=== PATIENT | male | born 1950 ===

== ENCOUNTER → 2017-07-14 | Outpatient (CLI) | payer OTHER ==
[~2017-07-14] MED LIST: AMLO2.5T PO; CLC100X PO; CRBSR/200 PO; GABA-113 PO; HYDR-5688 PO; IBUP-1050 PO; LISI-725 PO; PRED10TA PO
--- NOTE | 2017-07-14 14:39 | DIAGNOSTIC IMAGING REPORT ---
L TIBIA/FIBULA 2 VIEWS CLINICAL HISTORY: 66 years-old Male presenting with LEFT LOWER LEG PAIN STATUS post fall. TECHNIQUE: Frontal and lateral views of the left lower leg were obtained. COMPARISON: None. FINDINGS: Knee joint and ankle mortise congruent. No acute fracture or malalignment. Enthesophyte noted at the superior pole of the patella. Atherosclerosis. IMPRESSION: No acute osseous injury of the left lower leg. Electronically signed by: Carlos Agudelo M.D. 07/14/2017 2:37 PM Dictated Date/Time: 07/14/2017 2:36 PM
== END | disposition home or self-care (01) ==
LOC: C.RDSM 14:19
PROVIDERS: ATTEND Physician Assistant
DX: M25.572 Pain in left ankle and joints of left foot (principal); M79.662 Pain in left lower leg

== ENCOUNTER → 2017-07-28 | Outpatient (CLI) | payer OTHER, BC ==
--- NOTE | 2017-07-28 15:23 | DIAGNOSTIC IMAGING REPORT ---
MRI LUMBAR SPINE W/O CONTRAST CLINICAL HISTORY: Back pain with left leg radiculopathy. TECHNIQUE: Sagittal and axial T1, T2 and STIR images were obtained. COMPARISON STUDY: Conventional radiographic study the lumbar spine dated 07/28/2017 OBSERVATIONS: The vertebral bodies and posterior elements appear intact. There is no abnormal bony signal present to suggest a marrow replacement process. There is a suspected transitional vertebra with partial sacralization of the L5 vertebral body. The numbering system was annotated on the PACS images. On the sagittal images, there is evidence for a disc protrusion at the T11-12 level. No axial images were obtained through this finding L1-2: There is a circumferential disc bulge with mild spinal stenosis. There is no significant foraminal narrowing. L2-3: There is a circumferential disc bulge with mild spinal stenosis. There is no significant foraminal narrowing. L3-4: There is a circumferential disc bulge with mild spinal stenosis. There is no significant foraminal narrowing L4-5: There is a circumferential disc bulge. There is facet joint arthropathy. There is moderate spinal stenosis. There is minor left-sided foraminal narrowing. L5-S1: No disc protrusions or extrusions. No evidence of spinal canal or neural foraminal compromise. The conus medullaris and cauda equina appear normal. IMPRESSION: 1. Multilevel spondylitic changes. 2. T11-T12 disc protrusion 3. Mild spinal stenosis the L1-2, L2-3, and L3-4 levels. Moderate spinal stenosis at the L4-5 level. Electronically signed by: Anirudh Cleary M.D. 07/28/2017 3:21 PM Dictated Date/Time: 07/28/2017 3:16 PM
== END | disposition home or self-care (01) ==
LOC: C.MRIBC 14:40
PROVIDERS: ATTEND Internal Medicine
DX: M79.605 Pain in left leg (principal); M51.24 Other intervertebral disc displacement, thoracic region; M99.73 Connective tissue and disc stenosis of intervertebral foramina of lumbar region

== ENCOUNTER → 2017-07-28 | Outpatient (CLI) | payer OTHER, BC ==
--- NOTE | 2017-07-28 08:56 | DIAGNOSTIC IMAGING REPORT ---
LUMBAR SPINE MIN 4 VIEWS HISTORY: Pain LOW BACK AND LEFT LEG PAIN COMPARISON: None. FINDINGS: Mild lumbar scoliosis. Moderate to rather significant degenerative disc changes throughout. Moderate sclerosis vertebral endplates. Posterior elements are intact. No evidence spondylolysis. Moderate degenerative sclerosis of the sacroiliac joints. No subluxation. IMPRESSION: Mild lumbar scoliosis. Moderate degenerative disc changes throughout. No acute process. The above report was generated using voice recognition software. It may contain grammatical, syntax or spelling errors. Electronically signed by: Davide Zacarias M.D. 07/28/2017 8:55 AM Dictated Date/Time: 07/28/2017 8:54 AM
--- NOTE | 2017-07-28 08:57 | DIAGNOSTIC IMAGING REPORT ---
L ANKLE MIN 3 VIEWS CLINICAL HISTORY: Left ankle pain COMPARISON: None. DISCUSSION: No fractures or dislocations are visualized. There are no erosive or destructive changes. There are vascular calcifications present. There is a small Achilles insertional spur. There are small spur arising from the dorsal aspect of the talus. There is a spur versus overlying corticated ossicle projected of the dorsal surface of the navicular. IMPRESSION: 1. No fractures identified 2. No erosive or destructive changes are visualized. Electronically signed by: Anirudh Cleary M.D. 07/28/2017 8:55 AM Dictated Date/Time: 07/28/2017 8:54 AM
== END | disposition home or self-care (01) ==
LOC: C.RDSM 13:24
PROVIDERS: ATTEND Internal Medicine
DX: M79.605 Pain in left leg (principal); M54.5 Low back pain

== ENCOUNTER 2017-09-19 12:00 | Emergency (ER) | payer OTHER, BC ==
[~2017-09-19] VITALS: Ht 172.7 cm; Wt 75.0 kg
[~2017-09-19 12:00] MED LIST changes: +B-COTAB18 PO; -CLC100X PO; -CRBSR/200 PO; -GABA-113 PO; -HYDR-5688 PO; -IBUP-1050 PO; -LISI-725 PO; +LISI20TA3 PO; +MELOXICAM PO; +MULT-506 PO; -PRED10TA PO
[2017-09-19 12:03] VITALS: Ht 172.7 cm; Wt 75.0 kg
[2017-09-19] MEDS ORDERED: ONDANSETRON INJ 2 MG/ML 2 ML VIAL IV STA (12:41)
[2017-09-19] MEDS ORDERED: HYDROmorphone INJ 1 MG/ML SYR IV STA ×2 (12:41→17:21)
[2017-09-19] MEDS ORDERED: KETOROLAC TROMETHAMINE 30 MG/ML VIAL IV STA (12:41)
--- NOTE | 2017-09-19 12:44 | EMERGENCY ROOM VISIT NOTE ---
History Report prepared by [employer]: Naye Burciaga Under the Supervision of: Dr. Shaka Urrutia M.D. 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 The patient states that he slipped on a knife in a hotel kitchen June 2017. He states that he skid across the kitchen floor and banged into cabinetry, though denies falling to the ground. He denies any head injuries related to this incident. He notes that he did injure his back. He states that he has increased weakness, twitching, and vibrations in his hands and feet. He states that the pain in his back has radiated to his neck and to the back of his head. He currently rates his pain a 9/10 in severity. He states that he saw a doctor who prescribed him Gabapentin three times a day and 1000 mg Tylenol every two hours. 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 He states that the twitching in his extremities began three days ago. He states the vibrating sensation in his feet began 10 minutes ago. He also reports nausea and vomiting for two days. He states that he cannot hold items in his hands for too long, because he drops them without warning. He states a stabbing sensation in his left hip. He regularly takes Lisinopril. He notes that he is in physical therapy twice a week. He has not received the flu shot this season. He denies any fevers or abdominal pain. 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 He notes a stabbing pain to left hip. Review of Systems See HPI for pertinent positives & negatives. A total of 10 systems reviewed and were otherwise negative. Past Medical & Surgical Medical Problems: (1) Anemia (2) Internal hemorrhoid, bleeding (3) Transfusion history Surgical Problems: (1) H/O hemorrhoidectomy Family History No pertinent family history Social History Smoking Status: Never Smoker Smokeless Tobacco Use: No Alcohol Use: none Drug Use: none Marital Status: Housing Status: lives with significant other Occupation Status: employed Current/Historical Medications Scheduled Acetaminophen (Tylenol), 1,000 MG PO Q2H Amlodipine (Norvasc), 2.5 MG PO BID B-Complex Vitamins (Vitamin B Complex), 1 TAB PO DAILY Docusate Sodium (Docusate Sodium), 100 CAP PO HS Doxycycline Monohydrate (Monodox), 100 MG PO BID Gabapentin (Neurontin), 300 MG PO TID Lisinopril (Prinivil), 20 MG PO BID Multivitamin (Multivitamin), 1 TAB PO DAILY Ondasetron Odt (Zofran Odt), 4 MG SL Q6H Psyllium (Metamucil Fiber), 1 PKT PEG DAILY Scheduled PRN Baclofen (Lioresal), 10 MG PO TID PRN for Pain Oxycodone Immediate Rel Tab (Roxicodone Ir), 1-2 TAB PO Q4H PRN for Severe Pain Allergies Coded Allergies: No Known Allergies (Verified , 09/19/17) Physical Exam Vital Signs Date Time Temp Pulse Resp B/P (MAP) Pulse Ox O2 Delivery O2 Flow Rate FiO2 09/19/17 19:18 37.2 70 18 125/87 95 Room Air 09/19/17 17:38 64 09/19/17 17:16 77 18 118/65 95 Room Air 09/19/17 14:46 63 16 113/73 94 Room Air 09/19/17 13:12 63 20 129/72 96 Room Air 09/19/17 12:57 96 Room Air 09/19/17 12:57 98 Room Air 09/19/17 12:53 62 09/19/17 12:03 36.4 63 18 139/81 96 Room Air Physical Exam GENERAL: Patient is a healthy-appearing well-nourished male. HEAD: Normocephalic atraumatic EYES: Ocular movements intact pupils equal and react to light OROPHARYNX mucous membranes are moist no exudates present no erythema or edema present NECK: Supple no nuchal rigidity CHEST: Good equal expansion LUNGS: Clear and equal to auscultation CARDIAC: Normal S1 and S2 ABDOMEN: Soft nontender no guarding BACK: No CVA tenderness EXTREMITIES: No pain upon palpation normal muscle strength in all groups no clubbing cyanosis or edema NEURO: Patient is following commands and answering questions appropriately. Alert and oriented x3 Cranial Nerves 2-12 grossly intact Medical Decision & Procedures ER Provider Diagnostic Interpretation: Radiology results as stated below per my review and radiologist interpretation: HEAD CT NONCONTRAST CT DOSE: 767.83 mGy.cm HISTORY: Pt c/o b/l arm weakness TECHNIQUE: Multiaxial CT images of the head were performed without the use of intravenous contrast. Automated exposure control was utilized for this study. A dose lowering technique was utilized adhering to the principles of ALARA. Comparison: Brain MRI 11/30/2013. Findings: Small retention cysts within the left maxillary sinus. The mastoid air cells are clear. The calvarium and skull base are intact. The ventricles and sulci are within normal limits. There is no mass, hematoma, midline shift, or acute infarct. Impression: No acute intracranial abnormality. Electronically signed by: Easton Enrique M.D. 09/19/2017 1:38 PM Dictated Date/Time: 09/19/2017 1:34 PM CHEST ONE VIEW PORTABLE HISTORY: Short of breath. COMPARISON: None. FINDINGS: No pneumothorax. No pleural effusions. The heart is mildly enlarged. The lungs are clear. Mildly tortuous thoracic aorta. No acute rib fractures. IMPRESSION: Mild cardiomegaly. No evidence for pulmonary edema. Electronically signed by: Easton Enrique M.D. 09/19/2017 2:13 PM Dictated Date/Time: 09/19/2017 2:12 PM Brain MRI WITH AND WITHOUT CONTRAST HISTORY: Pt c/o gen weakness TECHNIQUE: Multiplanar multisequence MRI of the brain was performed both before and after the intravenous administration of contrast. COMPARISON STUDY: Brain MRI 12/13/2013. FINDINGS: There are no areas of restricted diffusion to suggest acute infarction. The midline structures are intact. There are 2 small retention cysts within the left maxillary sinus. No fluid levels within the paranasal sinuses. The mastoid air cells are clear. The ventricles and sulci are within normal limits for age. There is no mass, hematoma, midline shift. The major vascular flow-voids at the skull base are well maintained. Postcontrast sequences show no areas of abnormal enhancement. IMPRESSION: No acute intracranial abnormality. Electronically signed by: Easton Enrique M.D. 09/19/2017 5:41 PM CERVICAL SPINE MRI WITH AND WITHOUT CONTRAST HISTORY: Pt c/o b/l arm weakness TECHNIQUE: Multiplanar multisequence MRI of the cervical spine was performed both before and after the use of intravenous contrast. COMPARISON STUDY: None. FINDINGS: Motion artifact. No definite fracture or subluxation. Prevertebral soft tissues and the C1-C2 interval are intact. The visualized posterior fossa is unremarkable. The cervical spinal cord demonstrates a normal signal intensity. Mild facet osteoarthritis throughout the majority of the cervical spine. There is mild disc space narrowing at C6-C7. No abnormal enhancement identified. C2-C3: Small focal central disc protrusion without significant central canal or left-sided neural foraminal narrowing. Moderate right-sided neural foraminal narrowing due to the facet and uncovertebral hypertrophy. C3-C4: Small focal central disc protrusion which abuts and slightly deforms the anterior cord. Mild to moderate bilateral neural foraminal narrowing. C4-C5: Small central/left paracentral focal disc protrusion which abuts and slightly deforms anterior cord. Mild bilateral neural foraminal narrowing. C5-C6: No significant central canal or right-sided neural foraminal narrowing. Moderate left-sided neural foraminal narrowing due to the uncovertebral and facet hypertrophy. C6-C7: Small broad-based posterior disc osteophyte complex without significant central canal narrowing. There is severe bilateral neural foraminal narrowing. C7-T1: Broad-based posterior disc bulge resulting in partial effacement of the anterior thecal sac without cord deformity. Mild right and severe left neural foraminal narrowing. IMPRESSION: 1. Motion artifact. No definite acute abnormality within the cervical spine. 2. The cervical spinal cord demonstrates a normal signal intensity. 3. Degenerative changes as described above. Electronically signed by: Easton Enrique M.D. 09/19/2017 5:48 PM Dictated Date/Time: 09/19/2017 5:41 PM Laboratory Results 09/19/17 13:01 Red Blood Count 5.23, Mean Corpuscular Volume 65.0, Mean Corpuscular Hemoglobin 20.8, Mean Corpuscular Hemoglobin Concent 32.1, Mean Platelet Volume 10.0, Neutrophils (%) (Auto) 46.7, Lymphocytes (%) (Auto) 45.6, Monocytes (%) (Auto) 5.1, Eosinophils (%) (Auto) 1.8, Basophils (%) (Auto) 0.4, Neutrophils # (Auto) 4.92, Lymphocytes # (Auto) 4.80, Monocytes # (Auto) 0.54, Eosinophils # (Auto) 0.19, Basophils # (Auto) 0.04 09/19/17 13:01 Test 09/19/17 13:00 09/19/17 13:01 09/19/17 13:06 09/19/17 14:32 Influenza Type A Antigen Neg for Influ A (NEG) Influenza Type B Antigen Neg for Influ B (NEG) White Blood Count 10.53 K/uL (4.8-10.8) Red Blood Count 5.23 M/uL (4.7-6.1) Hemoglobin 10.9 g/dL (14.0-18.0) Hematocrit 34.0 % (42-52) Mean Corpuscular Volume 65.0 fL (80-100) Mean Corpuscular Hemoglobin 20.8 pg (25-34) Mean Corpuscular Hemoglobin Concent 32.1 g/dl (32-36) Platelet Count 204 K/uL (130-400) Mean Platelet Volume 10.0 fL (7.4-10.4) Neutrophils (%) (Auto) 46.7 % Lymphocytes (%) (Auto) 45.6 % Monocytes (%) (Auto) 5.1 % Eosinophils (%) (Auto) 1.8 % Basophils (%) (Auto) 0.4 % Neutrophils # (Auto) 4.92 K/uL (1.4-6.5) Lymphocytes # (Auto) 4.80 K/uL (1.2-3.4) Monocytes # (Auto) 0.54 K/uL (0.11-0.59) Eosinophils # (Auto) 0.19 K/uL (0-0.5) Basophils # (Auto) 0.04 K/uL (0-0.2) RDW Standard Deviation 39.8 fL (36.4-46.3) RDW Coefficient of Variation 17.1 % (11.5-14.5) Immature Granulocyte % (Auto) 0.4 % Immature Granulocyte # (Auto) 0.04 K/uL (0.00-0.02) Microcytosis PRESENT Tear Drop Cells 1+ Prothrombin Time 11.0 SECONDS (9.0-12.0) Prothromb Time International Ratio 1.0 (0.9-1.1) Activated Partial Thromboplast Time 26.3 SECONDS (21.0-31.0) Partial Thromboplastin Ratio 1.0 Anion Gap 7.0 mmol/L (3-11) Est Creatinine Clear Calc Drug Dose 66.9 ml/min Estimated GFR () 85.3 Estimated GFR (Non- 73.6 BUN/Creatinine Ratio 16.6 (10-20) Calcium Level 9.6 mg/dl (8.5-10.1) Total Bilirubin 0.9 mg/dl (0.2-1) Direct Bilirubin 0.2 mg/dl (0-0.2) Aspartate Amino Transf (AST/SGOT) 27 U/L (15-37) Alanine Aminotransferase (ALT/SGPT) 57 U/L (12-78) Alkaline Phosphatase 50 U/L (45-117) Total Creatine Kinase 391 U/L (39-308) Creatine Kinase MB 8.2 ng/ml (0.5-3.6) Troponin I < 0.015 ng/ml (0-0.045) Total Protein 7.3 gm/dl (6.4-8.2) Albumin 4.2 gm/dl (3.4-5.0) Lipase 156 U/L (73-393) Salicylates Level < 1.7 mg/dl (2.8-20) Acetaminophen Level 21 ug/ml (10-30) Lyme Disease IgG Antibody NEG (NEG) Monoscreen NEG (NEG) Bedside Glucose 91 mg/dl (70-99) Creatine Kinase MB Ratio (0-3.0) Test 09/19/17 14:45 Urine Color DK YELLOW Urine Appearance CLOUDY (CLEAR) Urine pH 5.0 (4.5-7.5) Urine Specific [place] 1.028 (1.000-1.030) Urine Protein NEG (NEG) Urine Glucose (UA) NEG (NEG) Urine Ketones TRACE (NEG) Urine Occult Blood NEG (NEG) Urine Nitrite NEG (NEG) Urine Bilirubin NEG (NEG) Urine Urobilinogen NEG (NEG) Urine Leukocyte Esterase NEG (NEG) Urine WBC (Auto) 1-5 /hpf (0-5) Urine RBC (Auto) 0-4 /hpf (0-4) Urine Hyaline Casts (Auto) 5-10 /lpf (0-5) Urine Epithelial Cells (Auto) 0-5 /lpf (0-5) Urine Bacteria (Auto) NEG (NEG) Urine Opiates Screen POS (NEG) Urine Methadone, Qualitative NEG (NEG) Urine Barbiturates NEG (NEG) Urine Phencyclidine (PCP) Level NEG (NEG) Ur Amphetamine/Methamphetamine NEG (NEG) MDMA (Ecstasy) Screen NEG (NEG) Urine Benzodiazepines Screen NEG (NEG) Urine Cocaine Metabolite NEG (NEG) Urine Marijuana (THC) NEG (NEG) Labs reviewed by ED physician. Medications Administered Medications (Trade) Dose Ordered Sig/Abril Route Start Time Stop Time Status Last Admin Dose Admin Ketorolac Tromethamine (Toradol Inj) 30 mg NOW STAT IV 09/19/17 12:41 09/19/17 12:44 DC 09/19/17 13:07 30 MG Hydromorphone HCl (Dilaudid Inj) 1 mg NOW STAT IV 09/19/17 12:41 09/19/17 12:44 DC 09/19/17 13:08 1 MG Ondansetron HCl (Zofran Inj) 4 mg NOW STAT IV 09/19/17 12:41 09/19/17 12:45 DC 09/19/17 13:07 4 MG Potassium Chloride (Najma Ciel Elix) 30 meq NOW STAT PO 09/19/17 14:06 09/19/17 14:07 DC 09/19/17 17:08 30 MEQ Sodium Chloride 1,000 ml @ 999 mls/hr Q1H1M STAT IV 09/19/17 14:32 09/19/17 15:32 DC 09/19/17 14:50 999 MLS/HR Hydromorphone HCl (Dilaudid Inj) 1 mg NOW STAT IV 09/19/17 17:21 09/19/17 17:22 DC 09/19/17 17:27 1 MG Ceftriaxone Sodium (Rocephin Inj) 2 gm NOW STAT IV 09/19/17 18:03 09/19/17 18:05 DC 09/19/17 18:26 2 GM ECG Indication: weakness Rate (beats per minute): 58 Rhythm: sinus bradycardia Findings: no acute ischemic change, no ectopy ED Course 1233: Past medical records reviewed. The patient was evaluated in room C9. A complete history and physical examination was performed. 1241: Ordered Zofran 4 mg IV, Dilaudid 1 mg IV, Toradol 30 mg, and Potassium Chloride 30 meq PO 1422: I reassessed the patient at this time. He is resting comfortably. 1432: Ordered Sodium Chloride 1,000 ml @ 999 mls/hr 1721: Ordered Dilaudid 1 mg IV 1800: I reassessed the patient at this time. He is resting comfortably. I discussed the results and treatment plan with the patient. I answered all pertaining questions that he had. He expressed understanding and verbalized agreement. The patient will be discharged home. 1803: Ordered Rocephin 2 gm IV Medical Decision Prior records/ancillary studies reviewed. Triage Nursing notes reviewed. Additional history obtained from . The patient's history was concerning for altered mental status and probable overdose. Differential diagnosis: Etiologies such as toxicologic, infection, hypoglycemia, electrolyte abnormalities, cardiac sources, intracerebral event, neurologic, as well as others were entertained. This is a 67-year-old male that presents emergency department with numerous complaints. I had difficulty and pinning down exactly what the patient was here for but he appears to be complaining of generalized weakness that started approximately 3 days ago. I recommended CT the head however the patient refused CT of the neck. He did consent though for an MRI of the head and neck. The patient does have a number of slipped discs and he is following up with pain management clinic. In the emergency department patient is given Toradol as well as Dilaudid 2. Repeat examination revealed improvement patient's symptoms. The patient does not have an elevation in his white blood count cell count, his renal profile is normal and his liver profile is normal. His an equivocal Lyme's test and after talking with the patient we will try treating him for this. He was given 2 g of Rocephin in the emergency department. I will place the patient on doxycycline pending Lyme culture results. I recommended that the patient follow-up with pain management. Patient and are in agreement with the treatment plan. Medication Reconcilliation Current Medication List: was personally reviewed by me Blood Pressure Screening Patient's blood pressure: Normal blood pressure Impression Primary Impression: Generalized weakness Scribe Attestation The scribe's documentation has been prepared under my direction and personally reviewed by me in its entirety. I confirm that the note above accurately reflects all work, treatment, procedures, and medical decision making performed by me. Departure Information Dispostion Home / Self-Care Prescriptions Oxycodone Immediate Rel Tab (ROXICODONE IR) 5 Mg Tab 1-2 TAB PO Q4H Y for Severe Pain, #14 TAB Prov: Shaka Urrutia MD 09/19/17 Ondasetron Odt (ZOFRAN ODT) 4 Mg Tab 4 MG SL Q6H for Nausea, #6 TAB Prov: Shaka Urrutia MD 09/19/17 Doxycycline Monohydrate (Monodox) 100 Mg Cap 100 MG PO BID for 10 Days, #20 CAP Prov: Shaka Urruita MD 09/19/17 Referrals Olesya Elaine M.D. (PCP) Forms HOME CARE DOCUMENTATION FORM, IMPORTANT VISIT INFORMATION, WORK / SCHOOL INSTRUCTIONS Patient Instructions My [facility] Additional Instructions You received narcotic or benzodiazepene medication while in the emergency room today. This is an addictive medication that may cause drowziness as well as constipation. Do not drive, operate heavy machinery, or drink alcohol under the influence of this medication. Take 1000 mg Tylenol every 6 hours Take Oxy IR for breakthrough pain Culture results will be back in approx 48 hours You have been examined and treated today on an emergency basis only. This is not a substitute for, or an effort to provide, complete comprehensive medical care. It is impossible to recognize and treat all injuries or illnesses in a single emergency department visit. It is therefore important that you follow up closely with Dr Sousa. Call as soon as possible for an appointment. Thank you for your time and consideration. I look forward to speaking with you again soon. Please don't hesitate to call us if you have any questions.
[2017-09-19 12:57] VITALS: O2SAT 96
[2017-09-19 13:29] LABS: BASO % 0.4 %; BASO ABS # 0.04 K/uL (0-0.2); EOS % 1.8 %; EOS ABS # 0.19 K/uL (0-0.5); HEMOGLOBIN 10.9 g/dL (14.0-18.0); IG# 0.04 K/uL (0.00-0.02); LYMPH % 45.6 %; MEAN CORPUSCULAR HEMOGLOBIN 20.8 pg (25-34); MEAN CORPUSCULAR HGB CONC 32.1 g/dl (32-36); MONO % 5.1 %; MONO ABS # 0.54 K/uL (0.11-0.59); NEUT % 46.7 %; NEUT ABS # 4.92 K/uL (1.4-6.5); PLATELET COUNT 204 K/uL (130-400); RED CELL DISTRIBUTION WIDTH CV 17.1 % (11.5-14.5); RED CELL DISTRIBUTION WIDTH SD 39.8 fL (36.4-46.3); WHITE BLOOD COUNT 10.53 K/uL (4.8-10.8)
[2017-09-19 13:38] LABS: PTT PATIENT 26.3 SECONDS (21.0-31.0)
--- NOTE | 2017-09-19 13:39 | DIAGNOSTIC IMAGING REPORT ---
HEAD CT NONCONTRAST CT DOSE: 767.83 mGy.cm HISTORY: Pt c/o b/l arm weakness TECHNIQUE: Multiaxial CT images of the head were performed without the use of intravenous contrast. Automated exposure control was utilized for this study. A dose lowering technique was utilized adhering to the principles of ALARA. Comparison: Brain MRI 11/30/2013. Findings: Small retention cysts within the left maxillary sinus. The mastoid air cells are clear. The calvarium and skull base are intact. The ventricles and sulci are within normal limits. There is no mass, hematoma, midline shift, or acute infarct. Impression: No acute intracranial abnormality. Electronically signed by: Easton Enrique M.D. 09/19/2017 1:38 PM Dictated Date/Time: 09/19/2017 1:34 PM
[2017-09-19 13:46] LABS: INFLUENZA B ANTIGEN Neg for Influ B (NEG)
[2017-09-19 13:46] LABS: ALBUMIN 4.2 gm/dl (3.4-5.0); CALCIUM 9.6 mg/dl (8.5-10.1); CREATININE 1.05 mg/dl (0.60-1.40); POTASSIUM 3.7 mmol/L (3.5-5.1)
[2017-09-19 13:49] LABS: TOTAL PROTEIN 7.3 gm/dl (6.4-8.2)
[2017-09-19] MEDS ORDERED: BACL1TAB PO (13:59)
[2017-09-19] MEDS ORDERED: ACET-1256 PO (13:59)
[2017-09-19] MEDS ORDERED: GABA-113 PO (13:59)
[2017-09-19] MEDS ORDERED: PSYL58.636 PEG (13:59)
[2017-09-19] MEDS ORDERED: DOCU100C31 PO (13:59)
[2017-09-19] MEDS ORDERED: POTASSIUM CHLORIDE 20 MEQ/15 ML UDC PO STA (14:06)
--- NOTE | 2017-09-19 14:14 | DIAGNOSTIC IMAGING REPORT ---
CHEST ONE VIEW PORTABLE HISTORY: Short of breath. COMPARISON: None. FINDINGS: No pneumothorax. No pleural effusions. The heart is mildly enlarged. The lungs are clear. Mildly tortuous thoracic aorta. No acute rib fractures. IMPRESSION: Mild cardiomegaly. No evidence for pulmonary edema. Electronically signed by: Easton Enrique M.D. 09/19/2017 2:13 PM Dictated Date/Time: 09/19/2017 2:12 PM
[2017-09-19] MEDS ORDERED: SODIUM CHLORIDE 0.9% 1000ML 1,000 ML IV STA (14:32)
[2017-09-19 16:59] LABS: CKMB 8.2 ng/ml (0.5-3.6)
[2017-09-19 17:01] LABS: MONOSPOT NEG (NEG)
--- NOTE | 2017-09-19 17:42 | DIAGNOSTIC IMAGING REPORT ---
Brain MRI WITH AND WITHOUT CONTRAST HISTORY: Pt c/o gen weakness TECHNIQUE: Multiplanar multisequence MRI of the brain was performed both before and after the intravenous administration of contrast. COMPARISON STUDY: Brain MRI 12/13/2013. FINDINGS: There are no areas of restricted diffusion to suggest acute infarction. The midline structures are intact. There are 2 small retention cysts within the left maxillary sinus. No fluid levels within the paranasal sinuses. The mastoid air cells are clear. The ventricles and sulci are within normal limits for age. There is no mass, hematoma, midline shift. The major vascular flow-voids at the skull base are well maintained. Postcontrast sequences show no areas of abnormal enhancement. IMPRESSION: No acute intracranial abnormality. Electronically signed by: Easton Enrique M.D. 09/19/2017 5:41 PM Dictated Date/Time: 09/19/2017 5:33 PM
--- NOTE | 2017-09-19 17:50 | DIAGNOSTIC IMAGING REPORT ---
CERVICAL SPINE MRI WITH AND WITHOUT CONTRAST HISTORY: Pt c/o b/l arm weakness TECHNIQUE: Multiplanar multisequence MRI of the cervical spine was performed both before and after the use of intravenous contrast. COMPARISON STUDY: None. FINDINGS: Motion artifact. No definite fracture or subluxation. Prevertebral soft tissues and the C1-C2 interval are intact. The visualized posterior fossa is unremarkable. The cervical spinal cord demonstrates a normal signal intensity. Mild facet osteoarthritis throughout the majority of the cervical spine. There is mild disc space narrowing at C6-C7. No abnormal enhancement identified. C2-C3: Small focal central disc protrusion without significant central canal or left-sided neural foraminal narrowing. Moderate right-sided neural foraminal narrowing due to the facet and uncovertebral hypertrophy. C3-C4: Small focal central disc protrusion which abuts and slightly deforms the anterior cord. Mild to moderate bilateral neural foraminal narrowing. C4-C5: Small central/left paracentral focal disc protrusion which abuts and slightly deforms anterior cord. Mild bilateral neural foraminal narrowing. C5-C6: No significant central canal or right-sided neural foraminal narrowing. Moderate left-sided neural foraminal narrowing due to the uncovertebral and facet hypertrophy. C6-C7: Small broad-based posterior disc osteophyte complex without significant central canal narrowing. There is severe bilateral neural foraminal narrowing. C7-T1: Broad-based posterior disc bulge resulting in partial effacement of the anterior thecal sac without cord deformity. Mild right and severe left neural foraminal narrowing. IMPRESSION: 1. Motion artifact. No definite acute abnormality within the cervical spine. 2. The cervical spinal cord demonstrates a normal signal intensity. 3. Degenerative changes as described above. Electronically signed by: Easton Enrique M.D. 09/19/2017 5:48 PM Dictated Date/Time: 09/19/2017 5:41 PM
[2017-09-19] MEDS ORDERED: CEFTRIAXONE SOD INJ 1 GM ADDVIAL IV STA (18:03)
[2017-09-19] MEDS ORDERED: DOXY100C76 PO (18:06)
[2017-09-19] MEDS ORDERED: OXYC-57 PO (18:06)
[2017-09-19] MEDS ORDERED: ONDA4TAB10 SL (18:07)
[2017-09-19] MEDS ORDERED: OXYC1TAB3 PO (18:08)
[2017-09-19 19:18] VITALS: BP 125/87; PULSE 70; TEMP 37.2; O2SAT 95
[2017-09-21 16:33] LABS: EBV EARLY ANTIGEN AB < 9.00 U/ML
== END 2017-09-19 19:29 | disposition home or self-care (01) ==
LOC: C.EDB 12:03 → C.EDC 19:29
DX: R53.1 Weakness (principal); S39.92XD Unspecified injury of lower back, subsequent encounter; W01.198D Fall on same level from slipping, tripping and stumbling with subsequent striking against other object, subsequent encounter; R11.2 Nausea with vomiting, unspecified

== ENCOUNTER → 2017-10-06 | Day surgery (SDC) | payer OTHER, BC ==
[2017-09-17 08:54] VITALS: Ht 172.7 cm; Wt 72.3 kg
[~2017-10-06] VITALS: Ht 172.7 cm; Wt 72.3 kg
[~2017-10-06] MED LIST changes: +ACET-1256 PO; +BACL1TAB PO; +DOCU100C31 PO; +GABA-113 PO; +IOPAMIDOL INJ 61% 15 ML VIAL ONE; +LIDOCAINE HCL 1% MPF 5 ML VIAL ONE; +MBC75 PO; -MELOXICAM PO; +ONDA4TAB10 SL; +OXYC1TAB3 PO; +PSYL58.636 PEG; +SODIUM CHLORIDE 0.9% INJ 10 ML VIAL ONE
[2017-10-06 14:29] VITALS: BP 140/82; PULSE 60; O2SAT 100
--- NOTE | 2017-10-06 15:16 | OPERATIVE REPORT ---
DATE OF OPERATION: 10/06/2017 PREOPERATIVE DIAGNOSIS: Lumbar stenosis with a left L5 radiculopathy. POSTOPERATIVE DIAGNOSIS: Same. OPERATIVE PROCEDURE: Caudal epidural steroid injection under fluoroscopic guidance. INDICATIONS: The patient is a 67-year-old male who presents with a 3-1/2 month history of left leg pain that occurred after he slipped and went to catch himself at the joining motion of his back. He described a classic L5 radicular sensation down the leg that has not responded to conservative treatment, presents today for an epidural injection. The plan was to go via an intralaminar approach; however, the patient took anti-inflammatory this morning, Meloxicam and the approach will be via caudal route, given the risk of an epidural hematoma given the intralaminar approach. PHYSICAL EXAMINATION: Pleasant male seated comfortably. He has some tenderness to palpation of left sciatic notch. No focal weakness. Intact sensation. Negative seated straight leg raises. CONSENT: Verbal and written consent was obtained from the patient. Risks and benefits were reviewed. Risks include but are not limited to epidural abscess and allergic reaction. The patient wishes to proceed. DESCRIPTION OF PROCEDURE: The patient was taken back to procedures room of the [facility] where he was maintained in a prone position. Backside was cleansed with Betadine x3 and a dry sterile dressing was applied. Fluoroscope was used to identify the sacral hiatus I attest to the content of the Intraoperative Record and any orders documented therein. Any exception s are noted below.
--- NOTE | 2017-10-06 15:19 | OPERATIVE REPORT ---
DATE OF OPERATION: 10/06/2017 ADDENDUM PROCEDURE: The patient was taken back to the special procedures room, maintained in a prone position. Backside was cleansed with Betadine x3. Dry sterile dressing was applied. Fluoroscope was used to identify the sacral hiatus and overlying skin was anesthetized with 4 mL of lidocaine 1% with a 25 gauge 1.5-inch needle. A 25 gauge 3.5 inch spinal needle was then directed into the sacral canal and had resistance for being advanced very far was advanced upwards of 3/4 of an inch to an inch in the canal. He then underwent injection after negative aspiration of 40 mg of Depo-Medrol and 4 mL of preservative free sodium chloride. Injection was well tolerated. DISPOSITION: 1. The patient is taken out into the discharge recovery area where he will be discharged home once discharge criteria have been met. 2. Follow up in the [facility] office in 4 weeks' time. I attest to the content of the Intraoperative Record and any orders documented therein. Any exception s are noted below.
--- NOTE | 2017-10-06 15:20 | History & Physical Bridge - SC ---
H&P Re-Evaluation Bridge Note: I have examined the patient, reviewed the History & Physical and in the interval since the performance of the History & Physical I have noted the following changes of clinical significance: No changes noted
--- NOTE | 2017-10-06 15:22 | [facility] Post Operative Brief Note ---
Immediate Operative Summary Operative Date Oct 06, 2017. Pre-Operative Diagnosis Lumbar stenosis with left L5 radiculopathy Post-Operative Diagnosis Same Procedure(s) Performed Lumbar Epidural Steroid Injection, Caudal Approach Surgeon Dr. Moises Ragland Perfect Binder Operator Surgeon(s) None Estimated Blood Loss 0 Findings Consistent with Post-Op Diagnosis Specimens NA Anesthesia Type Local Disposition Disposition:
--- NOTE | 2017-10-06 15:22 | Discharge Instructions ---
Discharge Instructions Date of Service Oct 06, 2017. Visit Reason for Visit: Lumbar Radiculopathy Discharge Discharge Diagnosis / Problem: left leg pain Discharge Goals Goal(s): Decrease discomfort, Improve function Medications Stopped Medications Name(s): TYLENOL AND MELOXICAM LAST DOSE YESTERDAY AM Activity Recommendations Activity Limitations: resume your previous activity Anesthesia . Post Anesthesia Instructions: If you have had General Anesthesia or IV Sedation: * Do not drive today. * Resume driving when surgeon permits. * Do not make important decisions or sign legal documents today. * Call surgeon for: 1. Temperature elevations greater than 101 degrees F. 2. Uncontrollable pain. 3. Excessive bleeding. 4. Persistent nausea and vomiting. 5. Medication intolerance (nausea, vomiting or rash). * For nausea and vomiting use only clear liquids such as: tea, soda, bouillon until nausea subsides, then gradually increase diet as tolerated. * If you have any concerns or questions, call your surgeon's office. If physician is unavailable and it is an emergency, call 911 or go to the nearest emergency room. . Diet Recommendations Recommended Home Diet: resume previous diet Procedures Procedures Performed: Lumbar Epidural Steroid Injection, Caudal Approach Pending Studies Studies pending at discharge: no Medical Emergencies . Who to Call and When: Medical Emergencies: If at any time you feel your situation is an emergency, please call 911 immediately. . Non-Emergent Contact Non-Emergency issues call your: Specialist . . "Provider Documentation" section prepared by Jakub Ragland. .
== END | disposition home or self-care (01) ==
LOC: X.SURG 12:48
PROVIDERS: ATTEND Physical Medicine & Rehabilitation
DX: M48.061 Spinal stenosis, lumbar region without neurogenic claudication (principal); Z79.899 Other long term (current) drug therapy

== ENCOUNTER → 2017-11-22 | Day surgery (SDC) | payer OTHER, BC ==
[2017-11-04 10:39] VITALS: Ht 172.7 cm; Wt 72.3 kg
[~2017-11-22] VITALS: Ht 172.7 cm; Wt 72.3 kg
[~2017-11-22] MED LIST changes: -BACL1TAB PO; -GABA-113 PO; +GABA600T PO; -ONDA4TAB10 SL; -OXYC1TAB3 PO; -PSYL58.636 PEG; +PSYL58.636 PO
--- NOTE | 2017-11-22 14:26 | [facility] Post Operative Brief Note ---
Immediate Operative Summary Operative Date Nov 22, 2017. Pre-Operative Diagnosis Neural foraminal stenosis with left lower extremity radiculopathy L5 Post-Operative Diagnosis Same Procedure(s) Performed Lumbar Epidural Steroid Injection Surgeon Dr. Moises Ragland Vault Clerk Surgeon(s) None Estimated Blood Loss 0 Findings Consistent with Post-Op Diagnosis Specimens NA Drains None Anesthesia Type Local Complication(s) none Disposition Disposition:
--- NOTE | 2017-11-22 14:27 | Discharge Instructions ---
Discharge Instructions Date of Service Nov 22, 2017. Visit Reason for Visit: Lumbar Radiculopathy Discharge Discharge Diagnosis / Problem: left leg pain Discharge Goals Goal(s): Decrease discomfort, Improve function Activity Recommendations Activity Limitations: resume your previous activity Anesthesia . Post Anesthesia Instructions: If you have had General Anesthesia or IV Sedation: * Do not drive today. * Resume driving when surgeon permits. * Do not make important decisions or sign legal documents today. * Call surgeon for: 1. Temperature elevations greater than 101 degrees F. 2. Uncontrollable pain. 3. Excessive bleeding. 4. Persistent nausea and vomiting. 5. Medication intolerance (nausea, vomiting or rash). * For nausea and vomiting use only clear liquids such as: tea, soda, bouillon until nausea subsides, then gradually increase diet as tolerated. * If you have any concerns or questions, call your surgeon's office. If physician is unavailable and it is an emergency, call 911 or go to the nearest emergency room. . Diet Recommendations Recommended Home Diet: resume previous diet Procedures Procedures Performed: Lumbar Epidural Steroid Injection Pending Studies Studies pending at discharge: no Medical Emergencies . Who to Call and When: Medical Emergencies: If at any time you feel your situation is an emergency, please call 911 immediately. . Non-Emergent Contact Non-Emergency issues call your: Specialist . . "Provider Documentation" section prepared by Jakub Ragland. .
[2017-11-22 14:30] VITALS: TEMP 36.8
--- NOTE | 2017-11-22 14:44 | OPERATIVE REPORT ---
DATE OF OPERATION: 11/22/2017 PREOPERATIVE DIAGNOSES: Neural foraminal stenosis, left lower extremity, L5 radiculopathy. POSTOPERATIVE DIAGNOSES: Same. PROCEDURE: Left paramedian L5-S1 intralaminar epidural steroid injection under fluoroscopic guidance. INDICATIONS: The patient is a 67-year-old male that underwent a caudal epidural injection about a month ago. A little more than a month ago, he had 40% improvement, less intense pain but no improvement in frequency. The idea is to do a second epidural via the intralaminar approach to try to stack the effects of the medications. PHYSICAL EXAMINATION: Pleasant male seated comfortably. He has no focal weakness. Intact sensation. Negative seated straight leg raises. CONSENT: Verbal and written consent was obtained from the patient. Risks and benefits were reviewed. Risks include but are not limited to abscess, epidural abscess, epidural hematoma, allergic reaction, and dural puncture. The patient wishes to proceed. DESCRIPTION OF PROCEDURE: The patient was taken back to the special procedure room of the [facility] where he was maintained in a prone position. Backside was cleansed with Betadine x3 and a dry sterile dressing was applied. Fluoroscope was used to identify the L5-S1 intralaminar space and overlying skin on the left side was anesthetized with 4 mL of lidocaine 1% 25 gauge 1.5-inch needle. A 22 gauge 3.5-inch needle was then directed down towards the intralaminar space. It was advanced under lateral fluoroscopic guidance and loss of resistance was noted at a depth of 5 cm. Isovue-300 contrast 1 mL was injected in which demonstrated epidural uptake pattern which was confirmed with both AP and lateral views. He then underwent injection after negative aspiration of 40 mg Depo-Medrol, 4 mL of preservative free sodium chloride. Injection was well tolerated and reproduced a familiar radicular sensation was transient down the left leg. DISPOSITION: 1. The patient is taken out into the discharge recovery area where he will be discharged home once discharge criteria are met. 2. Follow up in the [facility] office in 4 weeks' time. I attest to the content of the Intraoperative Record and any orders documented therein. Any exception s are noted below.
[2017-11-22 14:56] VITALS: BP 148/83; PULSE 63; O2SAT 98
== END | disposition home or self-care (01) ==
LOC: X.SURG 13:07
PROVIDERS: ATTEND Physical Medicine & Rehabilitation
DX: M48.061 Spinal stenosis, lumbar region without neurogenic claudication (principal); M54.16 Radiculopathy, lumbar region

== ENCOUNTER 2018-10-04 23:54 | Inpatient (IN) ==
[2018-10-05] MEDS ORDERED: SODIUM CHLORIDE 0.9% 1000ML 2,000 ML IV ONE (00:21)
[2018-10-05] MEDS ORDERED: ALBUT/IPRATROP 3MG/0.5MG NEB 3 ML VIAL NEB STA (00:30)
[2018-10-05 00:53] LABS: Basophils # (auto) 0.03 K/uL (0-0.2); Basophils % (auto) 0.2 %; Eosinophils # (auto) 0.05 K/uL (0-0.5); Eosinophils % (auto) 0.3 %; Hematocrit (blood only) 34.6 % (42-52); Immature Granulocytes # (auto) 0.05 K/uL (0.00-0.02); Immature Granulocytes % (auto) 0.3 %; Lymphocytes # (auto) 1.41 K/uL (1.2-3.4); Lymphocytes % (auto) 8.5 %; Mean Corpuscular Hgb Conc 31.8 g/dL (32-36); Mean Corpuscular Volume 65.2 fL (80-100); Mean Platelet Volume 10.1 fL (7.4-10.4); Monocytes # (auto) 0.35 K/uL (0.11-0.59); Monocytes % (auto) 2.1 %; Neutrophils # (auto) 14.64 K/uL (1.4-6.5); Neutrophils % (auto) 88.6 %; Platelet Count 211 K/uL (130-400); RDW Coefficient of Variation 16.3 % (11.5-14.5); RDW Standard Deviation 37.9 fL (36.4-46.3); Red Blood Count 5.31 M/uL (4.7-6.1); White Blood Count 16.53 K/uL (4.8-10.8)
[2018-10-05] MEDS ORDERED: VANCOMYCIN HCL 1,500 MG in SODIUM CHLORIDE 0.9% 500 ML IV ONE (00:55)
[2018-10-05] MEDS ORDERED: PIPERACILL/TAZOBAC CONSULT ACTIVE PRN ×2 (00:55→03:36)
[2018-10-05] MEDS ORDERED: PIPERACILLIN/TAZOBACTAM 4.5 GM/120 ML BAG IV ONE (00:55)
[2018-10-05] MEDS ORDERED: VANCOMYCIN CONSULT ACTIVE PRN ×2 (00:55→03:36)
[2018-10-05 01:01] LABS: INR 1.1 (0.9-1.1); Prothrombin Time 11.4 Seconds (9.0-12.0)
[2018-10-05 01:11] LABS: Alanine Aminotransferase 23 U/L (12-78); Albumin Level 3.8 gm/dl (3.4-5.0); Aspartate Aminotransferase 13 U/L (15-37); BUN Creatinine Ratio 16.7 (10-20); Bilirubin Direct 0.2 mg/dl (0-0.2); Blood Urea Nitrogen 15 mg/dl (7-18); C Reactive Protein < 0.29 mg/dl (0-0.29); Calcium 9.6 mg/dl (8.5-10.1); Carbon Dioxide 24 mmol/L (21-32); Chloride 106 mmol/L (98-107); Creatinine Clr Calc Pharmacy 72.8 ml/min; Est GFR (African American) 99.4; Est GFR (Non-African American) 85.8; Glucose 150 mg/dl (70-99); Hypochromasia Present; Magnesium 1.9 mg/dl (1.8-2.4); Microcytosis Present; Potassium 3.5 mmol/L (3.5-5.1); Sodium 139 mmol/L (136-145); Tear Drop Cells 1+
[2018-10-05 01:14] LABS: Alkaline Phosphatase 64 U/L (45-117); Bilirubin,Total 0.8 mg/dl (0.2-1); Total Protein 6.9 gm/dl (6.4-8.2); Troponin I < 0.015 ng/ml (0-0.045)
[2018-10-05 01:43] LABS: Influenza A virus by PCR Neg for Influ A (Neg); Influenza B virus by PCR Neg for Influ B (Neg)
[2018-10-05] MEDS ORDERED: fentaNYL citrate 100 MCG/2 ML VIAL IV STA (01:53)
[2018-10-05] MEDS ORDERED: KETOROLAC TROMETHAMINE 15 MG/ML VIAL IV STA (01:53)
[2018-10-05] MEDS ORDERED: MELOXICAM 7.5 MG TAB PO STA (02:13)
[2018-10-05] MEDS ORDERED: GABAPENTIN 600 MG TAB PO STA (02:14)
[2018-10-05] MEDS ORDERED: AMITRIPTYLINE HCL 10 MG TAB PO STA (02:15)
[2018-10-05] MEDS ORDERED: SODIUM CHLORIDE 0.9% 1000ML 1,000 ML IV ONE (02:45)
[2018-10-05] MEDS ORDERED: XOPENEX/ATROVENT 1.25mg/0.5MG NEB COMBO NEB PRN (03:36)
[2018-10-05] MEDS ORDERED: BACLOFEN 20 MG TAB PO PRN (03:36)
[2018-10-05] MEDS ORDERED: IPRATROPIUM BROMIDE NASAL SPRAY 0.06% 15ML PRN (03:36)
[2018-10-05] MEDS ORDERED: ONDANSETRON INJ 2 MG/ML 2 ML VIAL IV PRN (03:36)
[2018-10-05] MEDS ORDERED: IPRATROPIUM BROMIDE NEB SOLN 0.02% 2.5 ML VIAL INH PRN (03:36)
[2018-10-05] MEDS ORDERED: BENZONATATE 100 MG CAPSULE PO PRN (03:36)
[2018-10-05] MEDS ORDERED: LEVALBUTEROL 1.25MG/0.5ML NEB INH PRN (03:36)
[2018-10-05] MEDS ORDERED: ALBUTEROL HFA 8 GM INHALER INH PRN (03:36)
[2018-10-05] MEDS ORDERED: NITROGLYCERIN SL 0.4 MG/TAB TAB SL PRN (03:36)
[2018-10-05] MEDS ORDERED: ALUMINUM/MAGNESIUM SUSP 30 ML UDC PO PRN (03:36)
[2018-10-05] MEDS ORDERED: AMITRIPTYLINE HCL 10 MG TAB PO PRN (03:36)
[2018-10-05] MEDS ORDERED: POLYETHYLENE (MIRALAX) 17 GM PACK PO PRN (03:36)
--- NOTE | 2018-10-05 04:11 | Emergency Department Note ---
Entered by Priti Durham acting as a scribe for Herberth Sahu MD ED Provider Note Name: Nasim Herman Age: 68 Arrives Via: Walk-In Informant: Self and CC: Fever HPI: A male arrives for evaluation after a fever that began 3 hours ago. The patient's , at bedside, reports that the patient had a bronchoscopy done yesterday. The patient reports that his symptoms worsened after the bronchoscopy. The patient complains of a cough and headache. He denies a rash. The patient reports that he has had pneumonia for a few months, noting that he has been on antibiotics for 9 days. He says that the the antibiotics were helping, but "they went downhill today." He complains that his tonsils have been swollen for months. 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 He denies any history of smoking. ROS: See above HPI for pertinent positives & negatives. A total of 10 systems reviewed and were otherwise negative. Past Medical History: Anemia Past Surgical History: Hemorrhoidectomy Family History: Family history is noncontributory. Social History: Home Medications: See below. Allergies: NKA Physical: Vitals: BP: 144/75, P: 111, R: 20, T: 102.9, O2 Sat: 93, Delivery: Room Air Exam: GENERAL: Patient is ill appearing and in moderate distress. EYES: No scleral icterus, unremarkable pupils. ENT: Mucous membranes dry, no nasal congestion. NECK: No masses appreciated, no meningismus, trachea is midline. RESPIRATORY: Tachypneic and dyspneic. Right lower lobe crackles, mild diffuse wheezing. CARDIOVASCULAR: Tachycardic rate and regular rhythm. No murmurs, rubs, gallops appreciated. GASTROINTESTINAL: Abdomen soft, non-tender, no peritonitis. Bowel sounds positive. No masses appreciated. BACK: No midline tenderness, no CVA tenderness EXTREMITIES: Normal motion all extremities, no cyanosis, no edema. NEUROLOGIC: Alert and oriented, no acute motor or sensory deficits, no focal weakness, cranial nerves grossly intact. SKIN: No rash, no jaundice, no diaphoresis. ED Course: Prior Medical Record, Triage/Nursing Notes, Medications, Allergies reviewed by Me Vital Signs: reviewed and remarkable for tachycardia Labs: Reviewed and remarkable for elevated LA, WBC Interventions: Saline Lock, NSS bolus 2L IV followed by another 1 L IV, Vanco IV , Zosyn 4.5gm IV, Toradol 15mg IV, Fentanyl 50mcg IV Imaging: X ray results are stated below per my interpretation: Chest: 1 view: Infiltrate RLL with haziness LLL. These are both new from previous CXR EKG: See below. Consults: I discussed the patient's [facility] the [facility]'s case. He will further evaluate the patient. Times: 0015: Past medical records reviewed. The patient was evaluated in room C01, and a complete history and physical examination were performed. 0107: I checked on the patient. I reviewed his chest X-ray findings with him. I planned to start him on antibiotics. 0124: I discussed the patient's case with [facility] the patient's case. He will further evaluate the patient. 0243: The pressure dropped to the 90s. Another liter of fluid was ordered. Blood pressure: WNL - no referral indicated Disposition: Admission to Hospitalist Prescriptions: none. Differentials: Pneumonia, PE, influenza, bronchitis, ACS, sepsis amongst other pathologies. Medical Decision Makin yr old male with recurrent pneumonia RLL who arrives with worsenign body aches, fevers, shob, cough, fatigue over last few hours, just about 12 [address]oscopy [address] [facility]. By exam with RLL pneumonia. Sepsis orders initiated and given initial 2 L Bolus NSS followed by empirica abx (broad spectrum given his sepsis and multiple previous abx). He had tylenol prior to arrival. He was given some Toradol/Fentanyl for body aches. Did note headache but by exam he has no meningitis findings, has no nuchal ridgidity and has no photophobia. Given RLL infiltrate I do not feel that LP is indicated at this time. Patient was noted to drop pressures after being here a while and thus was given 3rd L NSS bolus. With fevers, wbc elevation, lactate elevation I feel this is sepsis, though it is unusual that CRP and Procal are both negative. Flu PCR is negative and no runny nose though this could be viral in nature, but with hypotension and his ill appearance there is no doubt he requiring hospitalization. Abdomen is soft, non-tender and has no pain, no evidence intrabdominal issue at this time. Impression: Sepsis Pneumonia (Right Lower Lobe) Failure Outpatient Treatment Critical Care Time: I have personally spent greater than 30 minutes of critical care time in the direct management of this patient. Sepsis 2nd to Pneumonia requiring 3 L fluid hydration, empiric abx and found to have hypotension/unstable vitals during stay. This was a life/limb threatening event. This includes time spent evaluating patient, direct bedside care, chart review, placing orders, interpretation of diagnostic studies, discussion with consultants, patient, and family members, as well as other required patient management activities. This 30 minutes is in excess of all separately billable procedures. Herberth Sahu MD The scribe's documentation has been prepared under my direction and personally reviewed by me in its entirety. I confirm that the note above accurately reflects all work, treatment, procedures, and medical decision making performed by me. Impression & Plan Sepsis, Pneumonia, Failure of outpatient treatment Past Med/Surg History Medical History Anemia (Resolved) Transfusion history (Resolved) Internal hemorrhoid, bleeding (Resolved) Surgical History H/O hemorrhoidectomy (Resolved) Social History Current Living Situation: Spouse Other Information That Helps Us Care for You: No Feels Safe at Home: Yes Safety Concerns: Feels Safe At This Time Smoking Status: Never smoker Hx Alcohol Use: Yes Alcohol Intake Frequency: other Hx Substance Use: No Beliefs That Will Affect Care: None Communication Ability: Effective Shading Painter Required: No Results & Data Vital Signs Vital Signs - 24 hr 10/05/18 00:00 10/05/18 01:17 10/05/18 01:54 Temperature 39.4 C H 38.3 C H Temperature Source Oral Oral Sepsis Recent Fever Within 48 Hours Yes Sepsis New/Unexplained Change in Mental Status No Sepsis Action Taken by Nursing No Action Required Pulse Rate 115 H Pulse Rate [Right Finger] 111 H Pulse Rhythm Regular Pulse Rhythm [Right Finger] Pulse Strength Normal Pulse Strength [Right Finger] Respiratory Rate 20 20 Respiratory Effort / Characteristics Non-Labored Spontaneous Non-Labored Spontaneous Respiratory Depth Normal Normal Respiratory Pattern Regular Blood Pressure 111/69 Blood Pressure [Right Arm] 144/75 H Blood Pressure Mean 83 Blood Pressure Mean [Right Arm] 98 Blood Pressure Position Sitting Blood Pressure Position [Right Arm] Pulse Oximetry 93 93 Oxygen Delivery Method Room Air Room Air 10/05/18 01:57 10/05/18 02:56 10/05/18 03:15 Temperature Temperature Source Sepsis Recent Fever Within 48 Hours Sepsis New/Unexplained Change in Mental Status Sepsis Action Taken by Nursing Pulse Rate Pulse Rate [Right Finger] 110 H 104 H Pulse Rhythm Pulse Rhythm [Right Finger] Pulse Strength Pulse Strength [Right Finger] Respiratory Rate 20 20 Respiratory Effort / Characteristics Non-Labored Spontaneous Non-Labored Spontaneous Respiratory Depth Normal Normal Respiratory Pattern Blood Pressure Blood Pressure [Right Arm] 116/77 95/55 L Blood Pressure Mean Blood Pressure Mean [Right Arm] 90 68 Blood Pressure Position Blood Pressure Position [Right Arm] Pulse Oximetry 93 92 100 Oxygen Delivery Method Room Air Room Air 10/05/18 03:26 10/05/18 03:40 Temperature 37.2 C Temperature Source Oral Sepsis Recent Fever Within 48 Hours Sepsis New/Unexplained Change in Mental Status Sepsis Action Taken by Nursing Pulse Rate Pulse Rate [Right Finger] 106 H Pulse Rhythm Pulse Rhythm [Right Finger] Regular Pulse Strength Pulse Strength [Right Finger] Normal Respiratory Rate 22 Respiratory Effort / Characteristics Non-Labored Spontaneous Non-Labored Spontaneous SOB on Exertion Respiratory Depth Normal Normal Respiratory Pattern Regular Regular Blood Pressure Blood Pressure [Right Arm] 109/62 Blood Pressure Mean Blood Pressure Mean [Right Arm] 77 Blood Pressure Position Blood Pressure Position [Right Arm] Lying Pulse Oximetry 92 Oxygen Delivery Method Room Air Room Air Home Medications Current Medication List: was personally reviewed by me Laboratory Data Attestation: I reviewed the patient's lab results. Result diagrams: 10/05/18 00:30 10/05/18 00:30 Lab Results 10/05/18 10/05/18 10/05/18 Range/Units 00:30 00:30 00:30 WBC 16.53 H (4.8-10.8) K/uL RBC 5.31 (4.7-6.1) M/uL Hgb 11.0 L (14.0-18.0) g/dL Hct 34.6 L (42-52) % MCV 65.2 L (80-100) fL MCH 20.7 L (25-34) pg MCHC 31.8 L (32-36) g/dL RDW Std Deviation 37.9 (36.4-46.3) fL RDW Coeff of Jackie 16.3 H (11.5-14.5) % Plt Count 211 (130-400) K/uL MPV 10.1 (7.4-10.4) fL Immature Gran % (Auto) 0.3 % Neut % (Auto) 88.6 % Lymph % (Auto) 8.5 % [place] % (Auto) 2.1 % Eos % (Auto) 0.3 % Baso % (Auto) 0.2 % Immature Gran # (Auto) 0.05 H (0.00-0.02) K/uL Neut # (Auto) 14.64 H (1.4-6.5) K/uL Lymph # (Auto) 1.41 (1.2-3.4) K/uL [place] # (Auto) 0.35 (0.11-0.59) K/uL Eos # (Auto) 0.05 (0-0.5) K/uL Baso # (Auto) 0.03 (0-0.2) K/uL Hypochromasia Present Microcytosis Present Tear Drop Cells 1+ PT 11.4 (9.0-12.0) Seconds INR 1.1 (0.9-1.1) Sodium 139 (136-145) mmol/L Potassium 3.5 (3.5-5.1) mmol/L Chloride 106 (98-107) mmol/L Carbon Dioxide 24 (21-32) mmol/L Anion Gap 9.0 (3-11) BUN 15 (7-18) mg/dl Creatinine 0.92 (0.6-1.4) mg/dl Est Cr Clr Drug Dosing 72.8 ml/min Est GFR ( Amer) 99.4 Est GFR (Non-Af Amer) 85.8 BUN/Creatinine Ratio 16.7 (10-20) Glucose 150 H (70-99) mg/dl Lactate (0.4-2.0) mmol/L Calcium 9.6 (8.5-10.1) mg/dl Magnesium 1.9 (1.8-2.4) mg/dl Total Bilirubin 0.8 (0.2-1) mg/dl Direct Bilirubin 0.2 (0-0.2) mg/dl AST 13 L (15-37) U/L ALT 23 (12-78) U/L Alkaline Phosphatase 64 (45-117) U/L Troponin I < 0.015 (0-0.045) ng/ml C-Reactive Protein < 0.29 (0-0.29) mg/dl Total Protein 6.9 (6.4-8.2) gm/dl Albumin 3.8 (3.4-5.0) gm/dl Lipase 98 (73-393) U/L Procalcitonin (0-0.5) ng/ml Influenza Type A (PCR) (Neg) Influenza Type B (PCR) (Neg) 10/05/18 10/05/18 10/05/18 Range/Units 00:30 00:30 00:50 WBC (4.8-10.8) K/uL RBC (4.7-6.1) M/uL Hgb (14.0-18.0) g/dL Hct (42-52) % MCV (80-100) fL MCH (25-34) pg MCHC (32-36) g/dL RDW Std Deviation (36.4-46.3) fL RDW Coeff of Jackie (11.5-14.5) % Plt Count (130-400) K/uL MPV (7.4-10.4) fL Immature Gran % (Auto) % Neut % (Auto) % Lymph % (Auto) % [place] % (Auto) % Eos % (Auto) % Baso % (Auto) % Immature Gran # (Auto) (0.00-0.02) K/uL Neut # (Auto) (1.4-6.5) K/uL Lymph # (Auto) (1.2-3.4) K/uL [place] # (Auto) (0.11-0.59) K/uL Eos # (Auto) (0-0.5) K/uL Baso # (Auto) (0-0.2) K/uL Hypochromasia Microcytosis Tear Drop Cells PT (9.0-12.0) Seconds INR (0.9-1.1) Sodium (136-145) mmol/L Potassium (3.5-5.1) mmol/L Chloride (98-107) mmol/L Carbon Dioxide (21-32) mmol/L Anion Gap (3-11) BUN (7-18) mg/dl Creatinine (0.6-1.4) mg/dl Est Cr Clr Drug Dosing ml/min Est GFR ( Amer) Est GFR (Non-Af Amer) BUN/Creatinine Ratio (10-20) Glucose (70-99) mg/dl Lactate 2.4 H* (0.4-2.0) mmol/L Calcium (8.5-10.1) mg/dl Magnesium (1.8-2.4) mg/dl Total Bilirubin (0.2-1) mg/dl Direct Bilirubin (0-0.2) mg/dl AST (15-37) U/L ALT (12-78) U/L Alkaline Phosphatase (45-117) U/L Troponin I (0-0.045) ng/ml C-Reactive Protein (0-0.29) mg/dl Total Protein (6.4-8.2) gm/dl Albumin (3.4-5.0) gm/dl Lipase (73-393) U/L Procalcitonin < 0.05 (0-0.5) ng/ml Influenza Type A (PCR) Neg for Influ A (Neg) Influenza Type B (PCR) Neg for Influ B (Neg) Administered Medications Discontinued Medications Albuterol (Duoneb) 3 ml NEB NOW STA Stop: 10/05/18 00:31 Last Admin: 10/05/18 00:48 Dose: 3 ml Amitriptyline HCl (Elavil) 5 mg PO NOW STA Stop: 10/05/18 02:16 Last Admin: 10/05/18 03:55 Dose: Not Given Fentanyl Citrate (Fentanyl Citrate) 50 mcg IV NOW STA Stop: 10/05/18 01:54 Last Admin: 10/05/18 02:09 Dose: Not Given Gabapentin (Neurontin) 600 mg PO NOW STA Stop: 10/05/18 02:15 Last Admin: 10/05/18 03:55 Dose: Not Given Sodium Chloride (Nss 1000ml) 2,000 mls @ 999 mls/hr IV .Q2H1M ONE Stop: 10/05/18 02:21 Last Infusion: 10/05/18 03:38 Dose: 0 mls/hr Admin: 10/05/18 00:48 Dose: 999 mls/hr Piperacillin Sod/Tazobactam Sod (Zosyn) 4.5 gm in 120 mls @ 240 mls/hr IV NOW ONE Stop: 10/05/18 01:24 Last Infusion: 10/05/18 01:45 Dose: 0 mls/hr Admin: 10/05/18 01:11 Dose: 240 mls/hr Vancomycin HCl 1,500 mg/ (Sodium Chloride) 530 mls @ 200 mls/hr IV NOW ONE Stop: 10/05/18 03:33 Last Admin: 10/05/18 01:43 Dose: 200 mls/hr Sodium Chloride (Nss 1000ml) 1,000 mls @ 999 mls/hr IV .Q1H1M ONE Stop: 10/05/18 03:45 Last Admin: 10/05/18 03:55 Dose: Not Given Ketorolac Tromethamine (Toradol) 15 mg IV NOW STA Stop: 10/05/18 01:54 Last Admin: 10/05/18 02:08 Dose: 15 mg Meloxicam (Mobic) 15 mg PO NOW STA Stop: 10/05/18 02:14 Last Admin: 10/05/18 03:55 Dose: Not Given ECG Data Attestation: I personally reviewed and interpreted this ECG as follows: Indication: other (fever) Rate (beats per minute): 112 Rhythm: sinus tachycardia Findings: + other (poor baseline, no STEMI, no overt ischemia, QTc of 434); no ectopy Change: no significant change (no reason for comparison) Blood Pressure Blood Pressure Findings: Elevated blood pressure Blood Pressure Disposition: further management by hospitalist Discharge Plan Visit Data *Final* Discharge Date/Time: 10/05/18 02:57 Chief Complaint: Fever Stated Complaint: FEVER 103,S/P BRONCHOSCOPY ED Provider: Herberth Sahu Discharge Problem: Sepsis, Pneumonia, Failure of outpatient treatment Patient Disposition: Admitted As Inpatient Discharge Instructions Interventions: ED Discharge Assessment Last Done: 10/05/18 02:57 The scribe's documentation has been prepared under my direction and personally reviewed by me in its entirety. I confirm that the note above accurately reflects all work, treatment, procedures, and medical decision making performed by me.
[2018-10-05] MEDS: SODIUM CHLORIDE 0.9% 1000ML 1,000 ML IV SCH ×3 (04:24→23:16)
[2018-10-05 04:41] LABS: Appearance Urine Cloudy (Clear); Bacteria Urine Automated Negative (Negative); Bilirubin Urine Negative (Negative); Cast Urine Automated 0 /lpf (0-5); Color Urine Yellow; Glucose Urine UA Trace (Negative); Ketones Urine Negative (Negative); Leukocyte Esterase Urine Negative (Negative); Nitrite Urine Negative (Negative); Protein Urine Negative (Negative); Specific Gravity Urine 1.013 (1.000-1.030); Urobilinogen Urine Negative (Negative); WBC Urine Automated 0 /hpf (0-5)
[2018-10-05] MEDS: PIPERACILLIN/TAZOBACTAM 3.375 GM in DEXTROSE 5% 100 ML IV SCH ×3 (06:17→21:44)
[2018-10-05 07:05] LABS: Hemoglobin 9.1 g/dL (14.0-18.0); Mean Corpuscular Hgb Conc 31.4 g/dL (32-36); Mean Corpuscular Volume 64.6 fL (80-100); Mean Platelet Volume 9.9 fL (7.4-10.4); Platelet Count 186 K/uL (130-400); RDW Coefficient of Variation 16.3 % (11.5-14.5); RDW Standard Deviation 38.2 fL (36.4-46.3); Red Blood Count 4.49 M/uL (4.7-6.1); White Blood Count 23.45 K/uL (4.8-10.8)
[2018-10-05] MEDS ORDERED: INFLUENZA VACCINE HIGH DOSE 65+ 0.5 ML SYR IM ONE (07:30)
[2018-10-05] MEDS ORDERED: INFLUENZA ADMINISTRATION CHARGE ONE (07:30)
[2018-10-05 07:37] LABS: Basophils # (auto) 0.03 K/uL (0-0.2); Basophils % (auto) 0.1 %; Hypochromasia Present; Immature Granulocytes % (auto) 0.4 %; Lymphocytes # (auto) 1.76 K/uL (1.2-3.4); Lymphocytes % (auto) 7.5 %; Microcytosis Present; Monocytes # (auto) 1.49 K/uL (0.11-0.59); Monocytes % (auto) 6.4 %; Neutrophils # (auto) 20.07 K/uL (1.4-6.5); Neutrophils % (auto) 85.6 %
--- NOTE | 2018-10-05 07:38 | XRay Report ---
XR chest 1V portable HISTORY: Sepsis. Right lower lobe infiltrate. COMPARISON: Chest 09/19/2017. FINDINGS: There is no focal area of consolidation within the right lung base medially likely within t he right lower lobe. Increased interstitial markings within the left lung base. This could be due to vascular crowding. No pneumothorax. No pleural effusions. The heart is top normal in size. Mildly tor tuous thoracic aorta. IMPRESSION: A new focal airspace opacity within the right lung base medially likely within the right lower lobe. This favors a pneumonia. One to 2 month chest x-ray follow-up is recommended to ensure resolution. Electronically signed by: Easton Enrique M.D. 10/05/2018 7:36 AM
[2018-10-05 07:42] LABS: BUN Creatinine Ratio 13.6 (10-20); Calcium 8.2 mg/dl (8.5-10.1); Creatinine Clr Calc Pharmacy 79.7 ml/min; Est GFR (African American) 103.5; Est GFR (Non-African American) 89.3; Magnesium 1.8 mg/dl (1.8-2.4); Potassium 3.6 mmol/L (3.5-5.1)
[2018-10-05] MEDS: LISINOPRIL 20 MG TAB PO SCH ×2 (08:09→20:34)
[2018-10-05] MEDS: DOCUSATE SODIUM 100 MG CAP PO SCH ×3 (08:09→21:46)
[2018-10-05] MEDS: AZITHROMYCIN 250 MG TAB PO SCH (08:09)
[2018-10-05] MEDS: GABAPENTIN 600 MG TAB PO SCH ×3 (08:09→20:33)
[2018-10-05] MEDS: CEROVITE ADV FORMULA TAB PO SCH (08:09)
[2018-10-05] MEDS: VITAMIN B COMPLEX TAB PO SCH (08:10)
[2018-10-05] MEDS: AMLODIPINE BESYLATE 5 MG TAB PO SCH ×2 (08:10→20:33)
[2018-10-05] MEDS: FLUTICASONE PROPIONATE NA SPR 16 GM BTL SCH (08:10)
--- NOTE | 2018-10-05 08:45 | History and Physical Report ---
DATE OF ADMISSION: 10/05/2018 CHIEF COMPLAINT: Fever and cough. HISTORY OF PRESENT ILLNESS: This is a 68-year-old male with past medical history significant for thalassemia minor, hypertension, history of frontal sinusitis, history of possible viral cough syndrome, possible bacterial pneumonia. Patient is having cough since the last 4 months started in May, it was thought to be from viral, is not getting better. He had a couple of courses of steroids and antibiotics, thought to be possible viral cough syndrome.Low grade fevers on and off. And was not getting better since last 4 months recently he had a CT scan on 09/19/2018 which showed multifocal airspace opacities with possible bronchiectasis, tree-in-bud opacities and scarring which is more basilar in distribution and most concentrated in the right lower lobe compatible with atypical infection, possibly secondary to aspiration given debris in the bronchus intermedius. At that time, he has also seen Dr. Marroquin, ID physician, and there was a concern for some atypical infection, so he was placed on azithromycin 500 mg p.o. daily on 09/22/2018 for 14 days, with a couple of more days of antibiotic to go., Hewas exposed to TB in [place] in early 1999he was treated for 3 months, around [id number]. He went to [place] today and saw pulmonary for bronchoscopy. Bronchoscopy was done today in [place], and after coming home, he suddenly started to spike fever and cough. His was worried and brought him to the hospital. He says his white count has been going up and down, but today, it was 16,000 here in [facility]. Also lactic acid was elevated at 2.4. Influenza A and B PCR was negative. Procalcitonin was negative. Because of his spiking fever, tachycardia, leukocytosis, and bronchoscopy done today at [place], we are admitting him for sepsis, possibly from pneumonia. Currently, his blood pressure is okay, resting comfortably. He has coughing also for some time. Otherwise he is doing okay, he denies any headache. He is ambulating okay without any chest pain, nausea, or shortness of breath. He had nausea and vomiting once today after coming home from bronchoscopy, but he is doing okay now, no abdominal pain, normal bowel and bladder movements. His Mycoplasma pneumonia antibody is up to like 1.4 as per Epic records. ALLERGIES: No known drug allergies. PAST MEDICAL HISTORY: As mentioned above. PAST SURGICAL HISTORY: Hemorrhoidectomy, colonoscopy, plastic surgery for facial lesion, rectal surgeries. MEDICATIONS: Patient is on Tessalon pearles 100 mg p.o. t.i.d. p.r.n., Hycodan 5 mL every 6 hours p.r.n., meloxicam 15 mg p.o. daily, Atrovent nasal spray 2 sprays t.i.d. as needed, albuterol 2 puffs p.r.n., amlodipine 5 mg p.o. b.i.d., Lasix 20 mg p.o. daily, lisinopril 20 mg p.o. b.i.d., baclofen 10 mg p.o. t.i.d. p.r.n., Elavil 5 mg p.o. HS p.r.n., vitamin B complex 1 tablet daily, multivitamins 1 tablet daily, Flonase 2 sprays into each nostril daily, Colace 100 mg p.o. daily. FAMILY HISTORY: Significant for father who has hypertension. Mother has hypertension, hypothyroidism, high cholesterol. Daughter has diabetes. SOCIAL HISTORY: . No smoking history. Alcohol occasional. No drug use. REVIEW OF SYSTEMS: As per HPI. Rest of review of systems negative. PHYSICAL EXAMINATION: GENERAL: Patient is of moderate build, not in acute distress. VITAL SIGNS: Temperature 39.4, pulse 110, respiratory rate 20, blood pressure 116/77, oxygen saturation 92% on room air. HEENT: No pallor, no icterus. Pupils equal, round, and reactive to light. NECK: No JVD, no neck masses, no carotid bruits. CARDIOVASCULAR SYSTEM: S1 and S2 heard, regular rate and rhythm, no murmur, no gallop. RESPIRATORY SYSTEM: Normal AP diameter. No accessory muscle use. Mild bibasilar crackles. No wheezing. GASTROINTESTINAL: Abdomen is soft, bowel sounds present, nontender, no distention. CENTRAL NERVOUS SYSTEM: Cranial nerves II through XII grossly intact. Nonfocal. EXTREMITIES: No edema, no erythema. LABORATORY DATA: WBC 16.5, hemoglobin 11, hematocrit 34.6, platelets 211. PT 11.4, INR 1.1. Sodium 139, potassium 3.5, chloride 106, bicarb 24, BUN 15, creatinine 0.9, serum glucose 150. Lactate 2.4. Calcium 9.6. Total magnesium 1.9. Total bilirubin 0.8, direct bilirubin 0.2, AST 13, ALT 23, alkaline phosphatase 64. Troponin I less than 0.015. C-reactive protein less than 0.2. Lipase 98. Procalcitonin less than 0.05. Influenza A and B PCR negative. IMAGING: Chest x-ray: Right lower lobe opacity seen. EKG: Sinus tachycardia with fusion complexes, rate of 111, nonspecific T-wave abnormality seen. ASSESSMENT AND PLAN: This is a 68-year-old male who is status post bronchoscopy in [place] presents with fever. 1. Fever, possible sepsis, possible pneumonia. Patient has cough for the last 4 months, treated with antibiotics and steroids, but he was not getting better, thought to be some postviral cough, was not getting better for a long time. CAT scan was done which showed multiple airspace opacities, bronchiectasis, tree-in-bud opacities, and scarring, more basilar distribution, more concentrated in the right lower lobe compatible with atypical infection, possibly secondary to aspiration given debris in the bronchus intermedius. At that time, was seen by ID and examined by Dr. Marroquin, PCP put on azithromycin high dose 500 mg b.i.d. for 14 days on 09/22/2018. He had a couple of more days of antibiotics left, and he was sent to [place] [facility], and patient had bronchoscopy today, awaiting for results. After coming home, he developed fever. Will treat for pneumonia with IV vancomycin and IV Zosyn and follow the cultures and also complete a couple of more days of azithromycin p.o. 500 mg daily. also nebulizers. follow repeat lactic acid levels. p.r.n. Consult pulmonary in the a.m. for further recommendations. 2. 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 Await the bronchoscopy results. 3. Anemia, hemoglobin of 11, history of thalassemia minor. 4. Hypertension. We will dose diuretics, lisinopril, and amlodipine with holding parameters. 5. Back pain, had laminectomy last summer, is on home pain medication. 6. Deep venous thrombosis prophylaxis. Sequential compression devices for now. 7. Disposition: Admit to tele floor. Expect discharge home and follow with family doctor. Level 1 full code. MTDD
--- NOTE | 2018-10-05 09:46 | Pharmacy Report ---
Pharmacy Abx Initial Consult - Date of Service October 05, 2018 - Pharmacy Dosing Scope Date of Consult: 10-05 Consultation requested by: Dr. Nicholson Pharmacy is consulted to initiate vancomycin/zosyn dosing therapy, order appropriate labs and adjust drug dose/frequency. - Subjective The patient is a 68 year old M admitted on 10/05/18 02:11. - Objective Height: 5 ft 8 in Weight: 72.3 kg Vital Signs (Past 12hrs): Vital Signs Lab Results (24hrs): Laboratory Tests (24 Hours) 10/05/18 10/05/18 10/05/18 06:51 06:51 00:30 WBC 23.45 H Neut # (Auto) 20.07 H Creatinine 0.87 Est Cr Clr Drug Dosing 79.7 C-Reactive Protein Procalcitonin < 0.05 10/05/18 10/05/18 00:30 00:30 WBC 16.53 H Neut # (Auto) 14.64 H Creatinine 0.92 Est Cr Clr Drug Dosing 72.8 C-Reactive Protein < 0.29 Procalcitonin Micro Results: 10/05/18 00:30 Blood Culture - Pending Blood 10/05/18 00:30 Blood Culture - Pending Blood - Risk Factors for Resistance * Antimicrobial use within the last 90 days [azithromycin] - Assessment & Plan Assessment/Plan Patient admitted with possible sepsis/pneumonia. Had been seen outpatient by ID due to continued cough/possible atypical infection and was on azithromycin x 14 days on 09/22. Previously had bronchoscopy done in [place]. Patient presented to ER after developing fever. Pulmonology is consulted to follow patient. Vancomycin: * Loading dose of 1500 mg (~20 mg/kg) iv given in the ER * Started on maintenance dose of vancomycin 1000 mg iv q 12 hrs (~14 mg/kg) to achieve estimated trough ~15-30 mcg/ml (goal for pneumonia) * Estimated kinetics: t1/2~10 hrs, ke~0.065 hr-1, CrCl ~73 ml/min * Will plan to obtain a trough prior to the 1200 dose on 10/06 to ensure therapeutic Zosyn: * 3.375 gm iv q 8 hrs - appropriate for CrCl >20 ml/min Pharmacy will continue to follow and will adjust dose/frequency as necessary. Thank you.
--- NOTE | 2018-10-05 11:53 | Consultation Report ---
DATE OF CONSULTATION: 10/05/2018 PULMONARY CONSULTATION TIME: 9:15 a.m. REPORT OF CONSULTATION: The patient was seen in room 240. He is a 68-year-old male who presented to the Emergency Room last evening. His history is that he has had a cough dating back to June. The cough has been dry. He was having mild fevers up to 101 in June. He had a stuffy nose at that time as well. He was having some chills. He did not go to a physician for quite some time. Ultimately, he went to a doctor late in June. Since then, he has had multiple courses of antibiotics and steroids. When he is on medication, his symptoms seemed to lessen, but not entirely resolved. When he is off the medicines, his cough worsens again. The cough is severe. It does awaken him multiple times at night. It is never productive. There has been no hemoptysis. He has persisted with nasal congestion and nasal coryza. The patient was seen by his family physician. He also states he saw Dr. Marroquin of the infectious disease department who did some lab work. He has had mild hoarseness. He has lost about 5 or 6 pounds, although in general, his appetite has been okay. Energy level has been okay. The patient was seen by [facility] pulmonary and he had bronchoscopy yesterday at [facility]. Lavage was done. Nothing significantly abnormal was found apparently. The bronchoscopy was done about 2:40 p.m. Several hours later, the patient started to feel like he had a fever. He had achiness. He developed vomiting which he threw up twice. He also had 2 episodes of diarrhea. He had a fever up to 102.9. He came to the Emergency Room with these symptoms. He was tachycardic and somewhat short of breath. The patient had significant IV fluids administered because of the concern about sepsis. He was given neb treatments. He was given fentanyl as well as gabapentin. I was not exactly certain why he received those medicines. He received Zosyn and vancomycin. He was given some Toradol and Mobic. The patient did not complain to me about pains and thus I was uncertain as to specifically why he received those particular medicines, though I am sure there is a reason. The patient denies any prior history of pulmonary problems of significance. He did grow up in [place], but he has been in [place] since his early 20s. In 1999, he was in [place] and may have had some exposure to TB. They put him on a medicine for 3 months which was then stopped. The patient did not know if it was INH or what it was. He has not had any recent travel history at all over the past year. The [facility] that he has been from [place] is [place]. PAST MEDICAL HISTORY: 1. Thalassemia minor. 2. Hypertension. 3. 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 PAST SURGICAL HISTORY: 1. Hemorrhoidectomy. 2. Low back surgery at L4-L5. 3. Cataracts. SOCIAL HISTORY: Tobacco never. ETOH - socially. ALLERGIES: No known allergies. FAMILY HISTORY: Mother at age 90, had diabetes, but otherwise just had old age. Father at age 92, essentially had no health problems until the last 6 months of his life. OCCUPATIONAL HISTORY: The patient is retired. 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 REVIEW OF SYSTEMS: The patient denies headaches or dizziness. He denies difficulty swallowing, but admits to having increased cough with swallowing both solids and liquids. Denies heartburn. As noted, he had vomiting and diarrhea last night, but this was not his usual. Denies urinary complaints. There have been no rashes. The remainder of the review of systems is negative. Ten systems reviewed. PHYSICAL EXAMINATION: GENERAL: The patient is a 68-year-old male who was cooperative, alert and oriented. He was in no distress at rest. VITAL SIGNS: Current temperature is 37.2. Max temperature is 39.4 at midnight. The cardiac rate is 90 beats per minute. He had peaked at 115. Blood pressure is 108/60. Blood pressure has been up and down with a maximum of 144/75 and a minimum of 95/55. HEENT: Pupils were reactive to light and equal in size. Implants were noted from prior cataract surgery. Nasal passages were narrow. Mouth exam shows an enlarged uvula with some crowding in the posterior pharynx. He would be a Mallampati grade 3. The patient relates that he has been told his tonsils are swollen, but I could not visualize the tonsils well. NECK: Palpation of the neck reveals no lymph nodes. He did admit to snoring which I inquired after seeing his throat. He denies observed apneas by his . He insists he sleeps well. CARDIOVASCULAR: There is a systolic murmur grade I/. He states he has never been told of a murmur before nor has he had an echo. The chest was of normal expansion. LUNGS: Auscultation revealed decreased breath sounds at the bases with a few rales. Egophony was noted at the left lung base. Saturation is 92% on room air. Respiratory rate is 16 and not labored. ABDOMEN: Soft. There was mild tenderness in the epigastrium. He states he gets sore there when he coughs very hard. No masses were palpable. EXTREMITIES: Showed no cyanosis, clubbing or edema. LABORATORY DATA: White count at 12:30 was 16.53. White count at 06:51 was 23.45. Hemoglobin at midnight was 11 and this morning is 9.1. The patient does have low indices. It is unknown if this is part of the thalassemia minor or not. Platelets are 186,000. INR is 1.1. Electrolytes show sodium 142, potassium 3.6, chloride 113, bicarbonate 22. BUN 12 with creatinine 0.87. Blood sugar 109. Calcium 8.2. Lactate was elevated at 2.4. Liver functions were normal. Troponin was negative. C-reactive protein was negative. Procalcitonin was negative. Urinalysis showed trace glucose. The patient had Lyme test done 09/19 that was negative for IgG, though equivocal for IgM. Flu test was negative on September 19 and again on October 05. Chest x-ray done this morning suggests a right lower lobe infiltrate. The only prior x-ray for comparison was 09/19/2017. He has had x-rays and CAT scan since then, which are through the [facility] system. We do not have access to those films. I did see a report regarding the CAT scan that reported cylindrical bronchiectasis with multiple airspace opacities and tree-in-bud changes. The CAT scan was done on 09/19/2018. EKG was done, but could not be accessed through this computer. IMPRESSION: 1. Right lower lobe infiltrate suggestive for pneumonia. 2. Chronic cough x4 months. 3. Cylindrical bronchiectasis. 4. Status post bronchoscopy. COMMENTS AND RECOMMENDATIONS: It is unclear what precipitated last night symptoms. He did have predominantly gastrointestinal symptoms and perhaps he has a separate GI disturbance. His symptoms have improved readily by this morning, however. He is feeling much better. He is currently on Zosyn and vancomycin. I would have no objection to those. He is also on azithromycin. Obviously, his bronchoscopy results will not be known for several days. The hope would be of course that the patient's symptoms will improve and he can follow up with his pulmonary providers as an outpatient through [facility]. Much of his further treatment may depend upon the lavage results. Consideration could be given to doing a QuantiFERON TB gold test if it was not already done. Thank you for asking me to assist in his care.
[2018-10-05] MEDS: VANCOMYCIN HCL 1,000 MG in SODIUM CHLORIDE 0.9% 250 ML IV SCH (13:26)
[2018-10-05] MEDS: ACETAMINOPHEN 325 MG TAB PO PRN (15:53)
[2018-10-05] MEDS: MELOXICAM 7.5 MG TAB PO SCH (20:34)
[2018-10-05] MEDS: HYDROCODONE/HOMATROPINE SYRUP 5MG/1.5MG 5ML UDP PO PRN (22:46)
[2018-10-06] MEDS: VANCOMYCIN HCL 1,000 MG in SODIUM CHLORIDE 0.9% 250 ML IV SCH ×2 (00:05→11:59)
[2018-10-06 05:56] LABS: Basophils # (auto) 0.04 K/uL (0-0.2); Basophils % (auto) 0.2 %; Eosinophils % (auto) 2.4 %; Hematocrit (blood only) 27.9 % (42-52); Hemoglobin 8.7 g/dL (14.0-18.0); Immature Granulocytes # (auto) 0.05 K/uL (0.00-0.02); Immature Granulocytes % (auto) 0.3 %; Lymphocytes # (auto) 4.54 K/uL (1.2-3.4); Lymphocytes % (auto) 27.7 %; Mean Corpuscular Hgb Conc 31.2 g/dL (32-36); Mean Corpuscular Volume 65.2 fL (80-100); Mean Platelet Volume 10.1 fL (7.4-10.4); Monocytes # (auto) 0.72 K/uL (0.11-0.59); Monocytes % (auto) 4.4 %; Neutrophils # (auto) 10.65 K/uL (1.4-6.5); Platelet Count 172 K/uL (130-400); RDW Coefficient of Variation 16.5 % (11.5-14.5); RDW Standard Deviation 38.6 fL (36.4-46.3); Red Blood Count 4.28 M/uL (4.7-6.1)
[2018-10-06] MEDS: PIPERACILLIN/TAZOBACTAM 3.375 GM in DEXTROSE 5% 100 ML IV SCH ×3 (05:59→21:04)
[2018-10-06 06:15] LABS: Hypochromasia Present; Microcytosis Present
[2018-10-06 06:25] LABS: BUN Creatinine Ratio 13.2 (10-20); Calcium 8.5 mg/dl (8.5-10.1); Creatinine Clr Calc Pharmacy 90.1 ml/min; Est GFR (African American) 108.8; Est GFR (Non-African American) 93.9; Magnesium 2.1 mg/dl (1.8-2.4); Potassium 3.8 mmol/L (3.5-5.1)
[2018-10-06] MEDS: ACETAMINOPHEN 325 MG TAB PO PRN (08:04)
[2018-10-06] MEDS: AMLODIPINE BESYLATE 5 MG TAB PO SCH ×2 (08:49→21:03)
[2018-10-06] MEDS: LISINOPRIL 20 MG TAB PO SCH ×2 (08:50→21:03)
[2018-10-06] MEDS: AZITHROMYCIN 250 MG TAB PO SCH (08:50)
[2018-10-06] MEDS: GABAPENTIN 600 MG TAB PO SCH ×3 (08:51→21:02)
[2018-10-06] MEDS: VITAMIN B COMPLEX TAB PO SCH (08:51)
[2018-10-06] MEDS: CEROVITE ADV FORMULA TAB PO SCH (08:51)
[2018-10-06] MEDS: FLUTICASONE PROPIONATE NA SPR 16 GM BTL SCH (08:51)
[2018-10-06] MEDS: SODIUM CHLORIDE 0.9% 1000ML 1,000 ML IV SCH (09:22)
[2018-10-06] MEDS ORDERED: Nursing to Pharmacy Communication ONE (10:18)
[2018-10-06] MEDS ORDERED: VANCOMYCIN TROUGH ONE (11:30)
--- NOTE | 2018-10-06 15:12 | Progress Note ---
DATE: 10/06/2018 PULMONARY PROGRESS NOTE TIME: 2:40 p.m. SUBJECTIVE: The patient is noticing increased cough today. It is nonproductive. He slept better last night, but he had the assistance of some cough medicine, which I suspect was the Hycodan. He is not noticing shortness of breath. OBJECTIVE: GENERAL: The patient appeared comfortable. He was in no distress. His cough was stimulated by deep breathing. He was having some pain associated with coughing. VITAL SIGNS: Temperature is 37 degrees. He has had no significant fever in the past 24 hours. Cardiac rate is 73 per minute. Rhythm regular. Blood pressure 128/77. LUNGS: Auscultation of the lung alfred reveals rales posteriorly bilaterally in the lung bases. Respiratory rate 18, saturation 95% on room air. ABDOMEN: Soft and nontender. EXTREMITIES: Showed no cyanosis, clubbing or edema. DIAGNOSTIC DATA: Dr. Pacheco informed me that the preliminary from the bronchoscopy shows strep pneumoniae. It would be unusual that this organism would be causing his cough for 4 months, however, despite numerous courses of antibiotics. That would be MS, there is a resistant strain. LABORATORY DATA: White count today was 16.4. Yesterday, it was 23.45. Hemoglobin is down to 8.7 and yesterday was 9.1. Platelets were 172,000. Electrolytes show sodium 140, potassium 3.8, chloride 112, bicarbonate 23. BUN was 10 with a creatinine of 0.77. Blood cultures are negative thus far. IMPRESSION: 1. Right lower lobe pneumonia. 2. Cough x4 months. 3. Cylindrical bronchiectasis. 4. Status post bronchoscopy. RECOMMENDATIONS: 1. I am doubtful the patient needs the IV fluids at present or certainly he does not need them at q. 8 hours. I believe oral would be adequate. 2. The patient is on Zosyn. If he is discharged soon, would suggest sending him on Augmentin unless the final cultures from bronchoscopy suggest a resistance. 3. Would continue the azithromycin at home for a total of 6 days. 4. The patient will be following up with [facility] pulmonary as an outpatient.
--- NOTE | 2018-10-06 16:25 | Hospitalist Progress Note ---
Date of Service October 06, 2018 Assessment & Plan (1) Pneumonia: Has been having on/off fever associated with cough Faily multiple course of abx CXR showed on admission showed focal airspace opacity within the right lung base medially likely within the right lower lobe. Preliminary Bronch cx done on 10/04 at [facility] showed strep pneumonia Blood cx no growth Afebrile for over 24hrs Will continue zosyn for now D/C IV vanco If sensitive, will discharge on Augmentin Continue Zithromax as per pulmonology to complete the abx course HTN BP elevated possible due to hospital setting Monitor BP Anemia Hgb dropped to 8.7 Will hold on heparin subq Monitor CBC DVT px On SCDs/ Ambulate CODE STATUS FULL CODE Disposition Possible discharge tomorrow if stable Subjective Pt was seen and examined Lying in bed with no distress Pt said that cough improves Has not had any fever for over 24 hrs Denies any chest pain, palpitation and SOB Physical Exam 2 Vital Signs (Past 24 Hours): Last Vital Signs Temp 37.2 C 10/06/18 15:20 Pulse 89 10/06/18 15:20 Resp 20 10/06/18 15:20 BP 159/94 H 10/06/18 15:20 Pulse Ox 94 10/06/18 15:20 Physical Exam: General- No acute distress Head- atraumatic Eyes- PERRL, EOMI, ENT- oropharynx clear Neck- supple, no JVD Lungs- +Rales Heart- regular rhythm; no murmur Abdomen- normal bowel sounds, soft, nontender Extremities- no calf tenderness Neuro- alert, oriented x 3; PERRL, EOMI; no facial palsy; no dysarthria Skin- warm & dry _ (1) Pneumonia Aspiration pneumonia type: Laterality: right Lung location: lower lobe of lung Pneumonia type: due to unspecified organism Qualified Code(s): J18.1 - Lobar pneumonia, unspecified organism
[2018-10-06] MEDS: MELOXICAM 7.5 MG TAB PO SCH (21:04)
[2018-10-06] MEDS: HYDROCODONE/HOMATROPINE SYRUP 5MG/1.5MG 5ML UDP PO PRN (21:08)
[2018-10-06] MEDS: LACTOBACILLUS ACIDOPHILUS (FLORANEX) TAB PO SCH (21:08)
[2018-10-07] MEDS: PIPERACILLIN/TAZOBACTAM 3.375 GM in DEXTROSE 5% 100 ML IV SCH ×2 (05:55→14:06)
[2018-10-07] MEDS: CEROVITE ADV FORMULA TAB PO SCH (07:49)
[2018-10-07] MEDS: GABAPENTIN 600 MG TAB PO SCH ×2 (07:49→14:06)
[2018-10-07] MEDS: LACTOBACILLUS ACIDOPHILUS (FLORANEX) TAB PO SCH (07:49)
[2018-10-07] MEDS: LISINOPRIL 20 MG TAB PO SCH (07:49)
[2018-10-07] MEDS: VITAMIN B COMPLEX TAB PO SCH (07:50)
[2018-10-07] MEDS: AMLODIPINE BESYLATE 5 MG TAB PO SCH (07:50)
[2018-10-07] MEDS: DOCUSATE SODIUM 100 MG CAP PO SCH ×2 (07:50→07:55)
[2018-10-07] MEDS: FLUTICASONE PROPIONATE NA SPR 16 GM BTL SCH (07:51)
[2018-10-07 08:31] LABS: Creatinine Clr Calc Pharmacy 75.4 ml/min; Est GFR (African American) 99.4; Est GFR (Non-African American) 85.8
[2018-10-07 09:16] LABS: Hematocrit (blood only) 32.9 % (42-52); Hemoglobin 10.3 g/dL (14.0-18.0); Mean Corpuscular Hgb Conc 31.3 g/dL (32-36); Mean Corpuscular Volume 64.4 fL (80-100); Mean Platelet Volume 10.1 fL (7.4-10.4); Platelet Count 196 K/uL (130-400); RDW Coefficient of Variation 16.4 % (11.5-14.5); Red Blood Count 5.11 M/uL (4.7-6.1); White Blood Count 9.21 K/uL (4.8-10.8)
--- NOTE | 2018-10-07 15:31 | Progress Note ---
DATE: 10/07/2018 PULMONARY PROGRESS NOTE TIME: 3:15. SUBJECTIVE: The patient is feeling better today. His cough is less. He still has some chest pain associated with coughing or deep breaths. Overall, his sense of wellbeing is improved. OBJECTIVE: VITAL SIGNS: Temperature is 36.7. His last temperature elevation was 24 hours ago at 37.2. Heart rate is 62 per minute. Rhythm regular. Blood pressure 153/88. Respiratory rate is 18. Oxygen saturation 96% on room air. LUNGS: Lung alfred again reveal mild rales posteriorly bilaterally in the inferior areas. EXTREMITIES: Showed no cyanosis, clubbing or edema. LABORATORY DATA: White count today was down to 9.21. Yesterday, it was 16.4, and on the it was 23.45. Hemoglobin today 10.3. Platelets 196,000. Creatinine today 0.92. Blood cultures have shown no growth. IMPRESSION: 1. Right lower lobe pneumonia. 2. Cough x4 months. 3. Cylindrical bronchiectasis. 4. Status post bronchoscopy. COMMENTS: The patient is clinically doing well. I have no objection to discharge when desired. Would switch him to Augmentin for outpatient oral treatment. He should likely have a followup x-ray in the relatively near future. 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
--- NOTE | 2018-10-07 16:24 | Hospitalist Progress Note ---
Date of Service October 07, 2018 Assessment & Plan (1) Pneumonia: Has been having on/off fever associated with cough Faily multiple course of abx CXR showed on admission showed focal airspace opacity within the right lung base medially likely within the right lower lobe. Preliminary Bronch cx done on 10/04 at [facility] showed strep pneumonia Blood cx no growth Afebrile for over 24hr Was starting on IV Zosyn on 10/05 received 3days course Vanco d/c yesterday Final Bronch cx grew strep pneumonia and sensitive to amoxicillin Will change abx to Augmentin to complete 10 days course Will need follow xray outpatient Follow up with Pulmonary HTN BP elevated possible due to hospital setting Monitor BP Anemia Hgb improved to 10.3 stable DVT px On SCDs/ Ambulate CODE STATUS FULL CODE Disposition Will discharge home today Follow up with your primary care provider Dr. Street on 10/12 @ 10:25 AM Follow up [facility] pulmonology Complete course of antibiotic Subjective Pt was seen and examined Sitting in chair with no distress Pt said that he feels much better He has been afebrile for over 48 hrs He said that he does have pleuritic pain with deep breath Denies any chest pain, palpitation, fever and SOB Physical Exam 2 Vital Signs (Past 24 Hours): Last Vital Signs Temp 36.7 C 10/07/18 15:39 Pulse 62 10/07/18 15:39 Resp 18 10/07/18 15:39 BP 143/87 H 10/07/18 15:39 Pulse Ox 97 10/07/18 15:39 Physical Exam: General- No acute distress Head- atraumatic Eyes- PERRL, EOMI, ENT- oropharynx clear Neck- supple, no JVD Lungs- clear to auscultation Heart- regular rhythm Abdomen- normal bowel sounds, soft, nontender Extremities- no calf tenderness Neuro- alert, oriented x 3; PERRL, EOMI; no facial palsy; no dysarthria Skin- warm & dry _ (1) Pneumonia Aspiration pneumonia type: Laterality: right Lung location: lower lobe of lung Pneumonia type: due to unspecified organism Qualified Code(s): J18.1 - Lobar pneumonia, unspecified organism
[2018-10-07] MEDS ORDERED: AMOXICILLIN/CLAVULANATE 875 MG TAB PO SCH (22:00)
--- NOTE | 2018-10-08 07:41 | Discharge Summary ---
Date of Service October 07, 2018 Admission HPI Per Admitting Provider CHIEF COMPLAINT: Fever and cough. HISTORY OF PRESENT ILLNESS: This is a 68-year-old male with past medical history significant for thalassemia minor, hypertension, history of frontal sinusitis, history of possible viral cough syndrome, possible bacterial pneumonia. Patient is having cough since the last 4 months started in May, it was thought to be from viral, is not getting better. He had a couple of courses of steroids and antibiotics, thought to be possible viral cough syndrome.Low grade fevers on and off. And was not getting better since last 4 months recently he had a CT scan on 09/19/2018 which showed multifocal airspace opacities with possible bronchiectasis, tree-in-bud opacities and scarring which is more basilar in distribution and most concentrated in the right lower lobe compatible with atypical infection, possibly secondary to aspiration given debris in the bronchus intermedius. At that time, he has also seen Dr. Marroquin, ID physician, and there was a concern for some atypical infection, so he was placed on azithromycin 500 mg p.o. daily on 09/22/2018 for 14 days, with a couple of more days of antibiotic to go., Hewas exposed to TB in [place] in early 1999he was treated for 3 months, around [id number]. He went to [place] today and saw pulmonary for bronchoscopy. Bronchoscopy was done today in [place], and after coming home, he suddenly started to spike fever and cough. His was worried and brought him to the hospital. He says his white count has been going up and down, but today, it was 16,000 here in [facility]. Also lactic acid was elevated at 2.4. Influenza A and B PCR was negative. Procalcitonin was negative. Because of his spiking fever, tachycardia, leukocytosis, and bronchoscopy done today at [place], we are admitting him for sepsis, possibly from pneumonia. Currently, his blood pressure is okay, resting comfortably. He has coughing also for some time. Otherwise he is doing okay, he denies any headache. He is ambulating okay without any chest pain, nausea, or shortness of breath. He had nausea and vomiting once today after coming home from bronchoscopy, but he is doing okay now, no abdominal pain, normal bowel and bladder movements. His Mycoplasma pneumonia antibody is up to like 1.4 as per Epic records. Admission Exam Per Admitting Provider GENERAL: Patient is of moderate build, not in acute distress. VITAL SIGNS: Temperature 39.4, pulse 110, respiratory rate 20, blood pressure 116/77, oxygen saturation 92% on room air. HEENT: No pallor, no icterus. Pupils equal, round, and reactive to light. NECK: No JVD, no neck masses, no carotid bruits. CARDIOVASCULAR SYSTEM: S1 and S2 heard, regular rate and rhythm, no murmur,no gallop. RESPIRATORY SYSTEM: Normal AP diameter. No accessory muscle use. Mild bibasilar crackles. No wheezing. GASTROINTESTINAL: Abdomen is soft, bowel sounds present, nontender, no distention. CENTRAL NERVOUS SYSTEM: Cranial nerves II through XII grossly intact. Nonfocal. EXTREMITIES: No edema, no erythema. Principal Diagnosis Pneumonia Anemia Hypertension Discharge Exam General- No acute distress Head- atraumatic Eyes- PERRL, EOMI, ENT- oropharynx clear Neck- supple, no JVD Lungs- clear to auscultation Heart- regular rhythm Abdomen- normal bowel sounds, soft, nontender Extremities- no calf tenderness Neuro- alert, oriented x 3; PERRL, EOMI; no facial palsy; no dysarthria Skin- warm & dry Discharge Data Allergies Allergy/AdvReac Type Severity Reaction Status Date / Time No Known Allergies Allergy Verified 10/05/18 00:56 Consultations 10/05/18 01:24 ED Decision to Admit Stat 10/05/18 08:00 Consult Pulmonology Routine Ordered Studies XR chest 1V portable HISTORY: Sepsis. Right lower lobe infiltrate. COMPARISON: Chest 09/19/2017. FINDINGS: There is no focal area of consolidation within the right lung base medially likely within the right lower lobe. Increased interstitial markings within the left lung base. This could be due to vascular crowding. No pneumothorax. No pleural effusions. The heart is top normal in size. Mildly tortuous thoracic aorta. IMPRESSION: A new focal airspace opacity within the right lung base medially likely within the right lower lobe. This favors a pneumonia. One to 2 month chest x-ray follow -up is recommended to ensure resolution. Electronically signed by: Easton Enrique M.D. 10/05/2018 7:36 AM Dictated: 10/05/18 0735 Transcribed: 10/05/18 0735 Hospital Course (1) Pneumonia: Has been having on/off fever associated with cough Faily multiple course of abx CXR showed on admission showed focal airspace opacity within the right lung base medially likely within the right lower lobe. Preliminary Bronch cx done on 10/04 at [facility] showed strep pneumonia Blood cx no growth Afebrile for over 24hr Was starting on IV Zosyn on 10/05 received 3days course Vanco d/c yesterday Final Bronch cx grew strep pneumonia and sensitive to amoxicillin Will change abx to Augmentin to complete 10 days course Will need follow xray outpatient Follow up with Pulmonary HTN BP elevated possible due to hospital setting Monitor BP Anemia Hgb improved to 10.3 stable DVT px On SCDs/ Ambulate CODE STATUS FULL CODE Disposition Will discharge home today Follow up with your primary care provider Dr. Street on 10/12 @ 10:25 AM [facility] Complete course of antibiotic Total Time Total Time Spent Total Time Spent (In Minutes): 35 minutes Total Time Includes: Examination of the Patient, Discharge Planning, Medication Reconciliation, Communication With Other Providers and Other Discharge Plan Discharge Items Patient Disposition: Home - Self-Care Reason For Visit: FEVER Discharge Diagnosis: Pneumonia Anemia Hypertension Discharge Goals: Decrease discomfort, Improve disease control, Improve function and Increase independence Activity: Resume your previous activity Activity Comment: as tolerated Non-emergency contact: Primary Care Provider Call non-emergency contact if: you have any medication questions and your temperature is above 101 Diet: Low Sodium (2gm) Addtl Provider Instructions: Follow up with your primary care provider Dr. Street on 10/12 @ 10:25 AM Follow up with [facility] [address] pulmonology Complete course of antibiotic with Augmentin Ok to give him 1 tab of tessalon perles to take home. Prescriptions: New amoxicillin-pot clavulanate 875-125 mg Tablet 1 tab PO Q12H 10 Days Qty: 20 RF: 0 benzonatate [Tessalon Perles] 100 mg Capsule 100 mg PO TID PRN (Reason: cough) 7 Days Qty: 21 RF: 0 Lactobacillus acidoph-L.bulgar [Floranex] 1 million cell Tablet 3 tab PO BID 10 Days Qty: 60 RF: 0 Continue gabapentin 600 mg tablet 600 mg PO TID RF: 0 meloxicam 15 mg Tablet 15 mg PO DAILY RF: 0 lisinopril 20 mg Tablet 20 mg PO BID RF: 0 amlodipine 5 mg tablet 5 mg PO BID RF: 0 baclofen 20 mg Tablet 10 - 20 mg PO TID PRN (Reason: Muscle Spasm) RF: 0 amitriptyline 10 mg Tablet 5 mg PO DAILY PRN (Reason: Unknown) RF: 0 benzonatate 100 mg Capsule 100 mg PO TID PRN (Reason: Cough) RF: 0 hydrocodone-homatropine 5-1.5 mg/5 mL Syrup 5 ml PO Q6H PRN (Reason: Cough) RF: 0 docusate sodium [Colace] 100 mg Capsule 100 mg PO DAILY RF: 0 vitamin B complex Tablet 1 tab PO DAILY RF: 0 furosemide 20 mg tablet 20 mg PO DAILY RF: 0 multivitamin with minerals [Multiple Vitamin-Minerals] Tablet 1 tab PO DAILY RF: 0 albuterol sulfate 90 mcg/actuation Hfa Aerosol Inhaler 2 puff INHALATION Q4 PRN (Reason: Wheezing) RF: 0 fluticasone [Flonase Allergy Relief] 50 mcg/actuation [place],Suspension 2 spray INTRANASAL DAILY RF: 0 ipratropium bromide 0.03 % [place],Non-Aerosol 2 spray INTRANASAL TID PRN (Reason: rhinitis or cough) RF: 0 Stand-Alone Forms: [facility] Discharge Orders: Discharge Order (Routine); Ordered 10/07/18 Ordered By: Aidan Pacheco Admission Data Admit Date/Time: 10/05/18 02:11 Attending Provider: Aidan Pacheco Admit Provider: Ayaz Nicholson Primary Care Provider: Gibran Fagan Other Providers: Lara Louis ; Ayaz Nicholson ; Clint Rocha Service: Medical Other Interventions: Discharge Summary Assessment (RN) Last Done: 10/07/18 18:22 DC Date/Time DO NOT enter until pt leaves facility: 10/07/18 19:02
--- NOTE | 2018-10-11 12:51 | Coding Query ---
SEPSIS To promote full compliance with coding requirements relating to patient care, physician participation is requested in all cases of college archivist uncertainty. Please assist us with the question(s) below: In responding to this query, please exercise your independent professional judgement. The fact that a question is asked does not imply that any particular answer is desired or expected. We appreciate your clarification on this issue. Patient admitted with Pneumonia and fever. H/P documents possible Sepsis. Please check below the relevant phrase, if applicable. Thanks for your help! [facility] ___ ( )Bacteremia (Nonspecific laboratory finding of bacteria in the blood) Specify Organism ( ) Present on Admission( ) Not present on admission ( ) Unable to clinically determine ( ) Septicemia (Systemic disease associated with the presence of pathogenic microorganisms in the blood): Specify Organism ( ) Present on Admission( ) Not present on admission( ) Unable to clinically determine ( ) Sepsis Specify Organism : Specify Associated Condition/Diagnosis ( ) Present on Admission () Not present on admission ( ) Unable to clinically determine ( ) Severe Sepsis (Sepsis associated with acute organ dysfunction) Specify Organism Specify Associated Condition/Diagnosis ( ) Present on Admission( ) Not present on admission ( ) Unable to clinically determine ( ) Septic Shock (Severe sepsis with acute circulatory failure, unexplained by other causes) ( ) Present on Admission( ) Not present on admission ( ) Unable to clinically determine (x) Other, patient has: Strep pneumonia found on sputum cx from bronchoscopy done in [facility]
== END 2018-10-07 19:02 | disposition home or self-care (01) | DRG 195 ==
LOC: ED 23:54 → SUATTDRO 10-05 02:11 → 2S 10-05 02:11 → 2W 10-05 21:19